=== PATIENT | female | born 1960 | race Caucasian/White ===

== ENCOUNTER 2019-04-27 09:23 | Outpatient (CLI) | payer BC, SELFPAY ==
--- NOTE | ~2019-04-27 | XR_ITS ---
EXAMINATION: XR abdomen/kub 1V INDICATION: Calculus of the left kidney TECHNIQUE: Supine views of the abdomen were obtained on 2 radiographs. COMPARISON: 03/07/2019 FINDINGS: A punctate group of calcifications previously described projecting in the left kidney lower pole are not definitely seen, suggestive of interval treatment change. There are phleboliths of the pelvis. No stones or stone fragments are identified along the expected course of the left ureter. The re is a 2 mm stone projecting in the upper pole of the left kidney. The bowel gas pattern is normal. IMPRESSION: 1. Interval treatment or passage of a cluster of stones previously seen in the lower pole of left kid humble. Reviewed, dictated and finalized at location A. E INTERCEPT TECHNICIAN IMPRESSION: 1. Interval treatment or passage of a cluster of stones previously seen in the lower pole of left kidney.
== END 2019-04-27 09:24 | disposition home or self-care (01) ==
PROVIDERS: Visit Provider Urology
DX: N20.0 Calculus of kidney (principal)
CPT/HCPCS: 74018

== ENCOUNTER → 2019-09-09 10:16 | Outpatient (CLI) | payer BC, SELFPAY ==
--- NOTE | ~2019-09-09 | DEXA_ITS ---
Bone Density Report Name: Eleanor Muller Age: 59 Sex: Female Ethnicity: White Date of : 1960 Indication: postmenopausal; screening for osteoporosis; height loss; Referring Provider: Nely, Trixie Study: Bone densitometry was performed. Exam Date: September 09, 2019 Accession number: [id number] Bone Density: Region BMD T-score Z-score Classification AP Spine (L1-L4) 0.985 -0.6 0.9 Normal Femoral Neck (Left) 0.783 -0.6 0.7 Normal Total Hip (Left) 0.974 0.3 1.3 Normal Femoral Neck (Right) 0.795 -0.5 0.8 Normal Total Hip (Right) 0.932 -0.1 0.9 Normal Total Hip Mean 0.953 0.1 1.1 Normal World Health Organization criteria for BMD impression classify patients as: Normal (T-score at or above -1.0), Osteopenia (T-score between -1.0 and -2.5), or Osteoporosis (T-score at or below -2.5). 10-year Fracture Risk: FRAX not reported because: All T-scores for Spine Total, Hip Total, Femoral Neck at or above -1.0 Previous Exams: Region Exam Age BMD T-score BMD Change BMD Change Date g/cm2 vs Baseline vs Previous AP Spine(L1-L4) 09/09/2019 59 0.985 -0.6 -0.074* -0.050* 06/24/2016 55 1.035 -0.1 -0.024* -0.024* 03/21/2013 52 1.059 0.1 Total Hip(Left) 09/09/2019 59 0.974 0.3 -0.012 0.026 06/24/2016 55 0.948 0.1 -0.038* -0.038* 03/21/2013 52 0.986 0.4 Total Hip(Right) 09/09/2019 59 0.932 -0.1 -0.050* -0.013 06/24/2016 55 0.945 0.0 -0.038* -0.038* 03/21/2013 52 0.983 0.3 *Denotes significance at 95% confidence level, LSC for AP Spine = 0.022 g/cm2, LSC for Total Hip = 0.027 g/cm2 Clinical Information Provided by Patient: Has used the following medications: Vitamin D Patient maximum height was 62 Menopause Age: 48 Drinks caffeinated beverages Onset of menses at age 10 Number of children 3 Impression: The patient has normal bone mass. The BMD for the AP Spine(L1-L4) decreased, changing by -0.050 since the last DXA exam. Discussion: BONE DENSITY IS ABOVE THE MINIMUM DESIRABLE LEVEL AT ALL SKELETAL SITES TESTED. This patient?s bone mineral density is above the minimum desirable level (T-score -1.0 or better) at all sites measured. The patient should follow a healthful lifestyle (good nutrition with adequate calcium and vitamin D, and appropriate weight-bearing exercise). Follow-Up: Consider repeating
--- NOTE | ~2019-09-09 | MM_ITS ---
EXAMINATION: MM screening [facility] BI w pepe HISTORY: Screening mammogram TECHNIQUE: Craniocaudal and mediolateral oblique 3-D tomosynthesis images were obtained and synthetic 2-D images were generated. CAD analysis was submitted and interpreted. COMPARISON: 08/19/2018, 07/20/2017, 06/24/2016 BREAST PARENCHYMAL COMPOSITION: There are scattered areas of fibroglandular density. FINDINGS: There is no evidence of suspicious mass, calcification, or architectural distortion to sugg est malignancy in either breast. There has been no suspicious interval change. IMPRESSION: 1. No mammographic evidence of malignancy. 2. Recommend routine screening mammography in one year. BI-RADS Category 1: Negative Reviewed, dictated and finalized at location A.
== END ==
PROVIDERS: Visit Provider Nurse Practitioner
DX: Z12.31 Encounter for screening mammogram for malignant neoplasm of breast (principal); Z78.0 Asymptomatic menopausal state
CPT/HCPCS: 77063; 77067; 77080

== ENCOUNTER 2019-09-26 13:54 | Outpatient (CLI) | payer BC, SELFPAY ==
--- NOTE | ~2019-09-26 | XR_ITS ---
EXAMINATION: XR lumbar spine 2-3V DATE: 09/26/2019 14:17 INDICATION: Low back pain TECHNIQUE: Anteroposterior and lateral views of the lumbar spine, and cone-down lateral view of the l umbosacral junction were obtained. COMPARISON: 07/07/2015 FINDINGS: There are 3 mm of anterolisthesis of L4 on L5 and L5 on S1. The vertebral body heights are maintained. There is mild chronic loss of intervertebral disc space height at L5-S1. No fracture is i dentified. There is mild facet osteoarthritis of the lower lumbar spine. IMPRESSION: 1. Mild lumbar spondylosis without acute findings or significant interval change. Reviewed, dictated and finalized at location B. IMPRESSION: 1. Mild lumbar spondylosis without acute findings or significant interval lexa iniguez
--- NOTE | ~2019-09-26 | XR_ITS ---
EXAMINATION: XR hip LT min 2V DATE: 09/26/2019 14:17 INDICATION: Left hip pain. TECHNIQUE: 3 views of left hip were obtained. COMPARISON: None. FINDINGS: Bone alignment is normal. No fracture. There is mild left hip osteoarthritis. IMPRESSION: 1. Mild left hip osteoarthritis. Reviewed, dictated and finalized at location A.
== END 2019-09-26 13:55 | disposition home or self-care (01) ==
PROVIDERS: PCP Family Medicine; Visit Provider Family Medicine
DX: M25.552 Pain in left hip (principal); M54.5 Low back pain
CPT/HCPCS: 72100; 73502

== ENCOUNTER 2019-10-13 11:51 | Outpatient (CLI) | payer BC, SELFPAY | END 2019-10-13 11:52 | disposition home or self-care (01) | PROVIDERS: PCP Family Medicine; Visit Provider Family Medicine | DX: J02.9 Acute pharyngitis, unspecified (principal); R50.9 Fever, unspecified | CPT/HCPCS: 87070; 87077 ==

== ENCOUNTER 2019-11-25 00:22 | Outpatient (CLI) | payer BC, SELFPAY ==
[2019-11-25 18:02] LABS: SARS-CoV-2 RNA PCR Negative
== END 2019-11-25 00:23 | disposition home or self-care (01) ==
LOC: ANHCOVIDDT 00:23
PROVIDERS: PCP Family Medicine; Visit Provider Internal Medicine Gastroenterology
DX: Z01.812 Encounter for preprocedural laboratory examination (principal); Z20.828 Contact with and (suspected) exposure to other viral communicable diseases
CPT/HCPCS: 87635; C9803; U0003

== ENCOUNTER 2019-11-28 01:25 | Day surgery (SDC) | payer BC, SELFPAY ==
[2019-11-22 12:00] VITALS: BMI 25.0
[2019-11-28 08:01] VITALS: BP 136/84; PULSE 85; RESP 14; TEMP 37; O2SAT 99; BMI 26.4
[2019-11-28] MEDS: LACTATED RINGERS 1,000 ML 150 ML IV CONT (08:15)
--- NOTE | 2019-11-28 08:25 | WPDANESEPPF ---
Anes - Initial Pre Proc Eval Procedure: Operation Date: 11/28/19 09:00 Proposed Procedures p Screening Colonoscopy - Esvin Gallagher MD Date/Time: 11/28/19 08:25 Surgeon: Esvin Gallagher MD Pre Op Diagnosis: neoplasm screening Patient Data Age: 59 Gender: F Height: 5 ft Weight: 61.3 kg Last Vital Signs Temp 37.0 C 11/28/19 08:01 Pulse 85 11/28/19 08:01 Resp 14 11/28/19 08:01 BP 136/84 11/28/19 08:01 Pulse Ox 99 11/28/19 08:01 Allergies Allergy/AdvReac Type Severity Reaction Status Date / Time tetanus immune globulin AdvReac Mild RASH Verified 11/28/19 08:00 CHILD Home Medications Medication Instructions Recorded Confirmed Type cyclobenzaprine 10 mg PO BID PRN 11/22/19 11/28/19 History Patient hx anesthesia problems: none Family hx anesthesia problems: none PMFSH Past Medical History Medical History Arthritis Renal stones Surgical History Surgical History Hx of cystoscopy S/P tonsillectomy Social History Social History Smoking status: Never smoker Alcohol intake: never Substance use: never Substance use type: does not use Living arrangements: with family Spiritual care concerns: No Anes - Eval Final PreProcedure Day of Procedure 11/28/19 08:25 Patient weight: overweight Heart: regular rate and rhythm Lungs: clear to auscultation Airway: Mallampati scale class II Neurological: alert and oriented Last oral intake: >/= 8 hours ASA classification: II Emergent: no Anesthetic plan: proceed Anesthesia type and monitoring: general GIVS and standard monitoring Informed Consent: The patient's anesthetic plan and its attendant risks and benefits were discussed with the patient/family/POA. Questions were solicited and answers provided to the satisfaction of the patient/family/POA.
--- NOTE | 2019-11-28 08:43 | P.HP_ITS ---
History of Present Illness History of Present Illness Consent: Risks, benefits, and alternatives have been discussed and questions answered. Patient agrees to proceed with procedure. Chief complaint: neoplasm screening Narrative: Eleanor Muller is a 59 year old W female Referred for screening colonoscopy. Patient's last colonoscopy was 10 years ago. Patient is asymptomatic and there is no family history of colon cancer. PMFSH Past Medical History Medical History Arthritis Renal stones Surgical History Surgical History Hx of cystoscopy S/P tonsillectomy Social History Social History Smoking status: Never smoker Alcohol intake: never Substance use: never Substance use type: does not use Living arrangements: with family Spiritual care concerns: No Meds Home Medications and Allergies Home Medications Medication Instructions Recorded Confirmed Type cyclobenzaprine 10 mg PO BID PRN 11/22/19 11/28/19 History Allergies Allergy/AdvReac Type Severity Reaction Status Date / Time tetanus immune globulin AdvReac Mild RASH Verified 11/28/19 08:00 CHILD Vital Signs Vital Signs - 24 hr 11/28/19 08:01 Temperature 37.0 C Pulse Rate 85 Respiratory Rate 14 Blood Pressure 136/84 Pulse Oximetry 99 Exam Const: Orientation/consciousness: patient oriented x3 Resp: Auscultation: clear to auscultation bilaterally Cardio: Rate: regular rate Rhythm: regular rhythm Heart sounds: no mu rmurs GI: GI Palp: Yes Soft to palpation, No Tenderness to palpation present (GI), Yes No hepatosplenomegaly present and No Palpable mass present Auscultation: normal bowel sounds Neuro: General: patient oriented x3 and no focal motor deficits Extrem: General: no pedal edema Assessment and Plan Additional Plan Screening colonoscopy in average risk patient
[2019-11-28 09:37] VITALS: BP 119/84; PULSE 88; RESP 20; O2SAT 100
[2019-11-28 09:47] VITALS: BP 106/77; PULSE 81; RESP 18; O2SAT 100
[2019-11-28 09:57] VITALS: BP 115/69; PULSE 67; RESP 18; O2SAT 100
== END 2019-11-28 10:01 | disposition home or self-care (01) ==
PROVIDERS: PCP Family Medicine; Referring Provider Obstetrics & Gynecology Gynecology; Visit Provider Internal Medicine Gastroenterology
PROC: 0DJD8ZZ Inspection of Lower Intestinal Tract, Via Natural or Artificial Opening Endoscopic (ICD-10-PCS; CPT 45378; principal; 2019-11-28 09:00)
DX: Z12.11 Encounter for screening for malignant neoplasm of colon (principal); K64.8 Other hemorrhoids
CPT/HCPCS: 45378; J2704; J7120

== ENCOUNTER → 2020-09-19 17:07 | Outpatient (CLI) | payer BC, SELFPAY ==
--- NOTE | ~2020-09-19 | MM_ITS ---
EXAMINATION: MM screening [facility] BI w pepe HISTORY: Screening TECHNIQUE: Craniocaudal and mediolateral oblique 3-D tomosynthesis images were obtained and synthetic 2-D images were generated. CAD analysis was submitted and interpreted. COMPARISON: Comparison to multiple prior studies sequentially, with oldest reviewed study dated 06/21. BREAST PARENCHYMAL COMPOSITION: There are scattered areas of fibroglandular density. FINDINGS: There is no evidence of suspicious mass, calcification, or architectural distortion to sugg est malignancy in either breast. There has been no suspicious interval change. IMPRESSION: 1. No mammographic evidence of malignancy. 2. Recommend routine screening mammography in one year. BI-RADS Category 1: Negative Reviewed, dictated and finalized at location A.
== END ==
PROVIDERS: Visit Provider Nurse Practitioner
DX: Z12.31 Encounter for screening mammogram for malignant neoplasm of breast (principal)
CPT/HCPCS: 77063; 77067

== ENCOUNTER 2021-02-26 11:54 | Outpatient (CLI) | payer BC, SELFPAY ==
--- NOTE | ~2021-02-26 | XR_ITS ---
EXAMINATION: XR hip RT min 2V DATE: 02/26/2021 12:47 INDICATION: Right hip pain. TECHNIQUE: 3 views of right hip were obtained. COMPARISON: None. FINDINGS: Bone alignment is normal. No fracture. There is mild right hip osteoarthritis. IMPRESSION: 1. Mild right hip osteoarthritis. Reviewed, dictated and finalized at location B. EROOM CLERK
--- NOTE | ~2021-02-26 | XR_ITS ---
EXAMINATION: XR femur RT min 2V DATE: 02/26/2021 12:46 INDICATION: Right hip pain. TECHNIQUE: 2 views of right femur on 4 radiographs were obtained. COMPARISON: None. FINDINGS: Bone alignment is normal. No fracture. There is mild right hip osteoarthritis. There is mil d tricompartmental osteoarthritis of the knee. No knee joint effusion. IMPRESSION: 1. Mild polyarticular osteoarthritis. Reviewed, dictated and finalized at location B. RIAL DAMAGE ADJUSTER
== END 2021-02-26 11:55 | disposition home or self-care (01) ==
LOC: CHSLAB 11:57 → CHSIMG 11:57
PROVIDERS: PCP Family Medicine; Visit Provider Family Medicine
DX: M25.551 Pain in right hip (principal)
CPT/HCPCS: 73502; 73552

== ENCOUNTER 2021-03-19 09:54 | Outpatient (CLI) | payer BC, SELFPAY ==
--- NOTE | ~2021-03-19 | XR_ITS ---
EXAMINATION: XR lumbar spine 2-3V EXAM DATE: 03/19/2021 10:21 INDICATION: Intervertebral disc disorders with radiculopathy lumbosacral . TECHNIQUE: Lumber spine frontal, lateral, lateral L5-S1 projections for interpretation. Comparison is made to prior examination from 09/26/2019. FINDINGS: There is 5 mm anterolisthesis L4 on L5 with mild to moderate disc disease at this level, mi ld disc disease L5-S1. Mild to moderate diffuse lumbar facet arthropathy. No spondylolysis suspected. There are no acute fractures identified. Paraspinal soft tissue is unremarkable. Calcifications in t he pelvis are believed to be phleboliths. IMPRESSION: 1. Grade 1 anterolisthesis L4 on L5. 2. Mild to moderate facet arthropathy and lower lumbar disc disease. Reviewed, dictated and finalized at location B. SURIZER
== END 2021-03-19 09:55 | disposition home or self-care (01) ==
LOC: CHSIMG 09:57
PROVIDERS: PCP Family Medicine; Visit Provider Family Medicine
DX: M51.17 Intervertebral disc disorders with radiculopathy, lumbosacral region (principal)
CPT/HCPCS: 72100

== ENCOUNTER → 2021-03-26 07:42 | Outpatient (CLI) | payer BC, SELFPAY ==
--- NOTE | ~2021-03-26 | MR_ITS ---
EXAMINATION: MR lumbar spine wo [facility] EXAM DATE: 03/26/2021 08:22 INDICATION: Intervertebral disc disorders with radiculopathy. Right-sided low back pain, right leg pa in. TECHNIQUE: Multi-sequential, multiplanar MR images of the lumbar spine were obtained without contrast . Sagittal T1, T2, T2 fat saturation images. Axial T2 weighted images. Correlation is made to x-ray from 03/19/2021. FINDINGS: There is 5 mm anterolisthesis L4 on L5 with mild to moderate loss of this disc height. Ther e is 3 mm anterolisthesis L5 on S1 with mild to moderate loss of this disc height. Mild disc disease L3-4. The conus medullaris terminates at the T12-L1 level and has normal signal intensity and morphol ogy. Tarlov cysts. There are no suspicious marrow signal abnormalities. Paraspinal soft tissue is unr emarkable. Level by level evaluation: T12-L1: Disc does not extend beyond the endplate margin. Facet arthropathy: Mild. Neural foraminal stenosis: No stenosis. Central canal stenosis: No stenosis. L1-L2: Disc does not extend beyond the endplate margin. Facet arthropathy: Mild. Neural foraminal stenosis: No stenosis. Central canal stenosis: No stenosis. L2-L3: Disc does not extend beyond the endplate margin. Facet arthropathy: Mild. Neural foraminal stenosis: No stenosis. Central canal stenosis: No stenosis. L3-L4: There is a mild diffuse disc bulge. Facet arthropathy: Mild to moderate. Ligamentum flavum enlargement. Neural foraminal stenosis: Mild bilateral. Central canal stenosis: Mild. L4-L5: There is a moderate diffuse disc bulge, superimposed small right central extrusion, inferior m igration causing severe lateral recess narrowing. Facet arthropathy: Severe . Ligamentum flavum enlargement. Neural foraminal stenosis: Mild to moderate bilateral. Central canal stenosis: Moderate to severe overall. Severe right lateral recess narrowing. L5-S1: There is a moderate diffuse disc bulge. Facet arthropathy: Moderate. Neural foraminal stenosis: Mild bilateral. Central canal stenosis: Mild to moderate. IMPRESSION: 1. L4-5 and L5-S1 grade 1 anterolistheses. No spondylolysis suspected. 2. L4-5 severe right lateral recess stenosis, moderate to severe central canal stenosis overall. Reviewed, dictated and finalized at location A. ESSOR OF MARKETING
== END ==
PROVIDERS: PCP Family Medicine; Visit Provider Family Medicine
DX: M51.17 Intervertebral disc disorders with radiculopathy, lumbosacral region (principal)
CPT/HCPCS: 72148

== ENCOUNTER 2021-07-28 06:58 | Emergency (ER) | payer BC, SELFPAY ==
[2021-07-28 07:03] VITALS: BP 128/107; PULSE 88; RESP 17; TEMP 36.3; O2SAT 96
--- NOTE | 2021-07-28 07:21 | ED.BACK ---
HPI - Back Pain/Injury General Chief Complaint: Back Pain/Injury Stated Complaint: lower back pain radiates to leg Time Seen by Provider: 07/28/21 07:11 History of Present Illness HPI Narrative: 60-year-old female with history of spinal stenosis presents here with 3 to 4 days of increasing pain that radiates from her right lower back down her right leg, similar to a prior episode she had back in March, endorses occasional tingling in the right foot but otherwise no weakness, chest pain, and worse when she bends, sits, she had taken a muscle relaxant last night which did not help. No fevers or chills, no recent trauma, and no urinary/fecal retention/incontinence. Related Data Home Medications Medication Instructions Recorded Confirmed cyclobenzaprine 10 mg tablet 10 mg PO BID PRN Back Pain 11/22/19 11/28/19 Allergies Allergy/AdvReac Type Severity Reaction Status Date / Time tetanus immune globulin AdvReac Mild RASH Verified 11/28/19 08:00 CHILD Review of Systems Review of Systems: CONST: No fever. HEENT: No sore throat C/V: No chest pain RESP: No cough GI: No abdominal pain : No dysuria. M/S: Pain radiating down right leg SKIN: No rash. NEURO: Some tingling right foot PSYCH: [No depression] [facility] Past Medical History Medical History Arthritis Renal stones Surgical History Surgical History Hx of cystoscopy S/P tonsillectomy Social History Social History Smoking status: Never smoker Alcohol intake: never Substance use: never Substance use type: does not use Spiritual care concerns: No Exam Narrative: EXAMINATION OF ORGAN SYSTEMS/BODY AREAS: Constitutional: Vital signs per nursing GENERAL: Resting comfortably when lying down in bed flat, but in severe pain when sitting up HEAD: Normal with no signs of head trauma. EYES: EOMI, conjunctiva normal ENT: Hearing grossly intact LUNGS: Nonlabored breathing. HEART: [Regular rate and rhythm] ABD: Nondistended EXT: Normal range of motion, no lower extremity swelling or tenderness, neg Nanda's sign SKIN: [No rashes or lesions.] NEURO: [Alert and oriented x 3.] Able to bear weight on both extremities PSYCH: Normal affect Course Vital Signs Vital signs: Vital Signs Temperature 97.3 F L 07/28/21 07:03 Pulse Rate 88 07/28/21 07:03 Respiratory Rate 17 07/28/21 07:03 Blood Pressure 128/107 H 07/28/21 07:03 Pulse Oximetry 96 07/28/21 07:03 Oxygen Delivery Room Air 07/28/21 07:03 Temperature 97.3 F L 07/28/21 07:03 Pulse Rate 88 07/28/21 07:03 Respiratory Rate 17 07/28/21 07:03 Blood Pressure 128/107 H 07/28/21 07:03 Pulse Oximetry 96 07/28/21 07:03 Oxygen Delivery Room Air 07/28/21 07:03 MDM - Back Pain/Injury MDM Narrative Medical decision making narrative: ED COURSE AND MEDICAL DECISION MAKING: ? 60-year-old female with acute on chronic low back pain. Normal motor and sensory exam. Patient able to ambulate though with pain. No evidence of acute cord compression, osteomyelitis/discitis or cauda equina without saddle anesthesia, urinary retention/incontinence, numbness/tingling in lower extremities, fever, history of IV drug use, cancer or immunosuppression. Doubt AAA or aortic dissection without severe pain/discomfort or any neurovascular deficits. [Ketorolac 15mg IM and Maddock 5mg PO] given for symptomatic relief. Prednisone given. [I discussed management of acute back pain in detail, explaining the need to remain active and the goals of pain control.] Patient is given return precautions and instructed to come back at any point in time for worsening pain, fevers, weakness, difficulty walking, urinary or fecal incontinence. Patient will follow up with her pain specialist and possibly a neurosurgeon; she expressed understanding of instructions. D
[2021-07-28] MEDS: predniSONE 20 MG TABLET 40 MG PO (07:28)
[2021-07-28] MEDS: HYDROcodone/acetaminophen (*CRX) 5-325 MG TABLET 1 TAB PO (07:29)
[2021-07-28] MEDS: KETOROLAC 30 MG/ML VIAL (*BKC) 15 MG IM (07:29)
[2021-07-28 07:49] VITALS: BP 142/88; PULSE 77; RESP 18; O2SAT 98
== END 2021-07-28 08:10 | disposition home or self-care (01) ==
PROVIDERS: Emergency Provider Emergency Medicine; PCP Family Medicine
DX: M54.16 Radiculopathy, lumbar region (principal)
CPT/HCPCS: 96372; 99283; A9270; J1885; J7512

== ENCOUNTER → 2021-12-12 10:16 | Outpatient (CLI) | payer BC, SELFPAY ==
--- NOTE | ~2021-12-12 | MM_ITS ---
EXAMINATION: MM screening [facility] BI w pepe HISTORY: Screening TECHNIQUE: Craniocaudal and mediolateral oblique 3-D tomosynthesis images were obtained and synthetic 2-D images were generated. CAD analysis was submitted and interpreted. COMPARISON: Comparison to multiple prior studies sequentially, with oldest reviewed study dated 06/21. BREAST PARENCHYMAL COMPOSITION: Breast composed of scattered areas of fibroglandular density FINDINGS: There is no evidence of suspicious mass, calcification, or architectural distortion to sugg est malignancy in either breast. There has been no suspicious interval change. IMPRESSION: 1. No mammographic evidence of malignancy. 2. Recommend routine screening mammography in one year. BI-RADS Category 1: Negative Reviewed, dictated and finalized at location A.
== END ==
PROVIDERS: PCP Family Medicine; Visit Provider Nurse Practitioner
DX: Z12.31 Encounter for screening mammogram for malignant neoplasm of breast (principal)
CPT/HCPCS: 77063; 77067

== ENCOUNTER 2022-07-16 11:52 | Outpatient (CLI) | payer BC, SELFPAY ==
--- NOTE | ~2022-07-16 | XR_ITS ---
Lumbosacral Spine: AP and lateral views Clinical History: Pain COMPARISON: 03/19/2021 Findings: The normal lordotic curve is maintained. 1 cm anterolisthesis of L4 over L5 is present, pos sibly minimally worsened from prior exam. There is facet arthropathy from L3 through S1. There is mod erate degenerative narrowing at L4-L5 and L5-S1. The sacroiliac joints are normally outlined. Impression: 1 cm anterolisthesis of L4 over L5, likely mildly progressed from prior exam. Mild degenerative spondylosis of the lower lumbar spine otherwise, as detailed above. Reviewed, dictated and finalized at location M. Impression: 1 cm anterolisthesis of L4 over L5, likely mildly progressed from prior exam. Mild degenerative spondylosis of the lower lumbar spine otherwise, as detailed above.
--- NOTE | ~2022-07-16 | XR_ITS ---
AP and lateral views of the bilateral hips Clinical history: Pain Findings: No acute fracture or dislocation is seen. Osseous alignment is anatomic. Bilateral hip and SI joint spaces are preserved. Soft tissues are unremarkable. Impression: No significant abnormality is seen. Reviewed, dictated and finalized at location . Impression: No significant abnormality is seen.
== END 2022-07-16 11:53 | disposition home or self-care (01) ==
LOC: CHSIMG 11:55
PROVIDERS: PCP Family Medicine; Visit Provider Family Medicine
DX: M25.559 Pain in unspecified hip (principal); M48.07 Spinal stenosis, lumbosacral region; M43.16 Spondylolisthesis, lumbar region
CPT/HCPCS: 72100; 73521

== ENCOUNTER → 2022-07-23 08:14 | Outpatient (CLI) | payer BC, SELFPAY ==
--- NOTE | ~2022-07-23 | MR_ITS ---
EXAMINATION: MR lumbar spine wo con DATE: 07/23/2022 09:15 INDICATION: Spinal stenosis TECHNIQUE: Magnetic resonance imaging (MRI) of the lumbar spine was performed without intravenous con trast. Sequences included sagittal T2-weighted FSE, sagittal T2-weighted FS FSE, sagittal T1-weighted FSE, and axial T2-weighted FSE. COMPARISON: Lumbar spine MR dated 03/26/2021 FINDINGS: Unchanged 5 mm anterolisthesis L4 on L5 and 3 mm anterolisthesis L5 on S1. Vertebral body heights are normal. Normal marrow signal. Mild disc height loss at L3-L4 and moderate disc height loss at L4-L5 and L5-S1. The conus medullaris terminates at L1. There is normal signal in the caudal spinal cord. There are a few Tarlov cysts in the sacrum, most prominent on the left at the S2 neural foramen. Para vertebral soft tissues are unremarkable. The following disc levels are specifically discussed: T12-L1: Disc is mildly bulging. There is moderate bilateral facet joint osteoarthritis. There is no n eural foraminal stenosis. There is minimal central canal stenosis. L1-L2: Disc is mildly bulging. There is mild bilateral facet joint osteoarthritis. There is no neural foraminal stenosis. There is no central canal stenosis. L2-L3: Disc is minimally bulging. There is mild bilateral facet joint osteoarthritis. There is mild b ilateral neural foraminal stenosis. There is no central canal stenosis. L3-L4: Disc is bulging. There is hypertrophy of the ligamentum flavum. There is mild to moderate bila teral facet joint osteoarthritis. There is mild to moderate bilateral neural foraminal stenosis. Ther e is mild central canal stenosis with narrowing of the left and right lateral recesses. L4-L5: Disc is bulging with annular fissure and increase in leftward extension of a now more centrall y positioned disc extrusion with disc material extending a 2-3 mm cephalad and caudal to the level of the endplates. There is hypertrophy of the ligamentum flavum. There is severe bilateral facet joint osteoarthritis. There is mild to moderate bilateral neural foraminal stenosis. There is severe centra l canal stenosis. L5-S1: Disc is bulging with annular fissure. There is moderate left and severe right facet joint oste oarthritis. There is mild bilateral neural foraminal stenosis. There is mild central canal stenosis. IMPRESSION: 1. Unchanged 5 mm anterolisthesis L4 on L5 and 3 mm anterolisthesis L5 on S1. 2. Slight progression in mild upper and moderate lower lumbar spondylosis. Reviewed, dictated and finalized at location A.
== END ==
PROVIDERS: PCP Family Medicine; Visit Provider Family Medicine
DX: M48.07 Spinal stenosis, lumbosacral region (principal); M47.896 Other spondylosis, lumbar region
CPT/HCPCS: 72148

== ENCOUNTER → 2022-08-25 10:18 | Outpatient (CLI) | payer BC, SELFPAY ==
--- NOTE | ~2022-08-25 | US_ITS ---
Pelvic ultrasound. Clinical History: Postmenopausal bleeding Technique: Realtime transabdominal scanning of the pelvis was performed. Color flow Doppler and Doppl er spectral analysis were performed. Findings: The uterus is anteverted. The endometrial stripe has a thickness of 4 mm. No focal mass is identified. Neither ovary seen. No adnexal mass seen. There is no evidence of free fluid in the cul de sac. Impression: Unremarkable appearance of the uterus and endometrial stripe. Neither ovary seen. No adnexal mass seen. Reviewed, dictated and finalized at location M. Impression: Unremarkable appearance of the uterus and endometrial stripe. Neither ovary seen. No adnexal mass seen.
== END ==
PROVIDERS: PCP Nurse Practitioner; Visit Provider Nurse Practitioner
DX: N95.0 Postmenopausal bleeding (principal)
CPT/HCPCS: 76856

== ENCOUNTER 2022-10-13 02:57 | Day surgery (SDC) | payer BC, SELFPAY ==
[2022-10-02 15:01] VITALS: BMI 23.8
--- NOTE | 2022-10-02 15:22 | SUR.PREOP ---
Report to the Outpatient Waiting Room, entrance under the green pavilion located off [facility], at time 0600 on date 10/13/2022. Planned Procedure Time: 0730. Time changes happen often and if your time is changed the preop area will call you the afternoon before. - You and your visitor will be asked to self-screen and do not enter if you have any COVID symptoms. - A mask is optional within the hospital at this time. Patients may have clear liquids (water, carbonated beverages, clear teas, apple juice) until 3 hours prior to surgery with a maximum of 20 ounces- 0430. - No food from midnight until time of surgery - Infants may have breast milk until 4 hours before surgery, formula 6 hours prior to surgery. - Children will be allowed to drink immediately following surgery. If applicable, please bring a bottle or sippy cup to assist with drinking. Juice, water, soda, and popsicles are readily available. For infants on formula, please bring formula the day of surgery. Pacifiers are allowed. Take the following medications with a SIP of water the morning of surgery: Tylenol or Cyclobenzaprine as needed DO NOT STOP ANY OF YOUR OTHER PRESCRIPTION MEDICATIONS PRIOR TO SURGERY ?EXCEPT THE FOLLOWING Medications to discontinue per physician: Naproxen- per patient stopping now, Vitamin D- 3 days Date to take last dose 10/09/2022 Please no make-up, nail israeli, hairspray, perfume, deodorant, or body powder the day of surgery. No jewelry (including any body piercings) or valuables the day of surgery, leave them at home. Please take a shower or bath the night before, or the morning of, surgery with an antibacterial soap. Wear comfortable, loose fitting clothing. Children are encouraged to wear pajamas. - Jewelry must be removed prior to entering the operating room. Rings and piercings that are not removed may be cut off. - The hospital will not accept responsibility for valuables. - Please leave all valuables, including medications, at home the day of surgery. If you are going home after surgery, a licensed regional driver must drive you home. - NO public transportation without another adult if you receive anesthesia. - We recommend that an adult stay with you for 24 hours following discharge. - We also recommend that you do not drive, make important decision, drink alcoholic beverages, or take any drugs that were not prescribed by your health care provider for at least 24 hours after your discharge time. For Pediatric surgeries, we recommend two adults accompany the child home. Follow any additional instructions given to you from your surgeon. If you or anyone in your household have experienced Covid symptoms in the past week, please notify your surgeon or the nurse liaison at the phone number below for possible testing. Telephone instructions given to patient and asked if any additional questions and then verbalized understanding. Patient advised to call surgeon office or pre surgery nurse liaison [phone] if any additional questions.
[2022-10-13 06:23] VITALS: BP 141/84; PULSE 67; RESP 18; TEMP 36.3; O2SAT 100
[2022-10-13] MEDS: LACTATED RINGERS 1,000 ML 30 ML IV CONT (06:53)
[2022-10-13] MEDS: ACETAMINOPHEN 500 MG TABLET 1000 MG PO (06:54)
--- NOTE | 2022-10-13 07:07 | P.PNAN_ITS ---
Anes - Initial Pre Proc Eval Procedure: Operation Date: 10/13/22 07:30 Proposed Procedures p Hysteroscopy Dilation and Curettage - Sierra Calderón MD Date/Time: 10/13/22 07:07 Surgeon: Sierra Calderón MD Pre Op Diagnosis: post menopausal bleeding Patient Data Age: 62 Gender: F Height: 1.55 m Weight: 57.2 kg Allergies Allergy/AdvReac Type Severity Reaction Status Date / Time tetanus immune globulin AdvReac Mild RASH Verified 10/13/22 06:48 CHILD Home Medications Medication Instructions Recorded Confirmed Type cyclobenzaprine 10 mg tablet 10 mg PO BID PRN Back Pain 11/22/19 10/13/22 History acetaminophen 500 mg tablet 1,000 mg PO Q6H PRN pain #30 tabs 07/28/21 10/13/22 Rx (Tylenol Extra Strength) naproxen sodium 220 mg capsule 220 mg PO BID pain #20 caps 07/28/21 10/13/22 Rx cholecalciferol (vitamin D3) 125 125 mcg PO DAILY 10/02/22 10/13/22 History mcg (5,000 unit) tablet (Vitamin D3) Patient hx anesthesia problems: none Family hx anesthesia problems: none Results Review: All pre-operative results and documents have been reviewed as part of the pre- operative evaluation. [facility] Past Medical History Medical History Arthritis Renal stones Surgical History Surgical History Hx of cystoscopy S/P tonsillectomy Social History Social History Smoking status: Never smoker Second hand tobacco smoke exposure: Yes Alcohol intake: former Substance use: never Substance use type: does not use Living arrangements: with family Spiritual care concerns: No Anes - Eval Final PreProcedure Day of Procedure 10/13/22 07:07 Patient weight: normal Heart: regular rate and rhythm Lungs: clear to auscultation Airway: Mallampati scale class II Neurological: alert and oriented Last oral intake: >/= 8 hours ASA classification: III Emergent: no Anesthetic plan: proceed Anesthesia type and monitoring: general GIVS and standard monitoring Results Review: All pre-operative results and documents have been reviewed as part of the pre-operative evaluation. Informed Consent: The patient's anesthetic plan and its attendant risks and benefits were discussed with the patient/family/POA. Questions were solicited and answers provided to the satisfaction of the patient/family/POA.
--- NOTE | 2022-10-13 07:17 | WPDHPUPDATE1 ---
History and Physical Update Update Date/Time: 10/13/22 07:17 History and Physical has been reviewed, including an updated exam of the patient. There are NO changes in the patient's condition. Risks, benefits, and alternatives have been discussed and questions answered. Patient agrees to proceed with procedure.
--- NOTE | 2022-10-13 07:17 | PM.HPGS ---
History of Present Illness History of Present Illness Consent: Risks, benefits, and alternatives have been discussed and questions answered. Patient agrees to proceed with procedure. Chief complaint: post menopausal bleeding Narrative: Eleanor Muller is a 62 year old female with random episodes throughout the past year of spotting. The pelvic ultrasound was fairly unremarkable with a minimally thickened endometrium. Was recommended to proceed with D&C hysteroscopy due to there being several episodes throughout the year. Risks of infection, bleeding, perforation, and possible pathology are reviewed. Patient voices understanding and agrees to proceed. Review of Systems Review of Systems: not repeated day of surgery; patient states no changes in status [facility] Past Medical History Medical History (Updated 10/13/22 @ 07:21 by Sierra Calderón MD) Arthritis (normal spontaneous vaginal delivery) x3 Renal stones Surgical History Surgical History (Updated 10/13/22 @ 07:21 by Sierra Calderón MD) History of bilateral tubal ligation History of hysteroscopy 2009 with no abnormalities Hx of cystoscopy Hx of lithotripsy multiple S/P tonsillectomy Social History Social History Smoking status: Never smoker Second hand tobacco smoke exposure: Yes Alcohol intake: former Substance use: never Substance use type: does not use Living arrangements: with family Spiritual care concerns: No Meds Home Medications and Allergies Home Medications Medication Instructions Recorded Confirmed Type cyclobenzaprine 10 mg tablet 10 mg PO BID PRN Back Pain 11/22/19 10/13/22 History acetaminophen 500 mg tablet 1,000 mg PO Q6H PRN pain #30 tabs 07/28/21 10/13/22 Rx (Tylenol Extra Strength) naproxen sodium 220 mg capsule 220 mg PO BID pain #20 caps 07/28/21 10/13/22 Rx cholecalciferol (vitamin D3) 125 125 mcg PO DAILY 10/02/22 10/13/22 History mcg (5,000 unit) tablet (Vitamin D3) Allergies Allergy/AdvReac Type Severity Reaction Status Date / Time tetanus immune globulin AdvReac Mild RASH Verified 10/13/22 07:10 CHILD Vital Signs Vital Signs - 24 hr 10/13/22 06:23 Temperature 97.3 F L Pulse Rate 67 Respiratory Rate 18 Blood Pressure 141/84 H Pulse Oximetry 100 Oxygen Delivery Room Air Exam Const: General: healthy appearing and alert Orientation/consciousness: patient oriented x3 Resp: Effort & Inspection: normal respiratory effort GI: GI Palp: Yes Soft to palpation, No Tenderness to palpation present (GI) and No Palpable mass present : External Female Exam: normal external appearance Speculum Exam - Vagina: normal appearance of the vagina and normal vaginal discharge Speculum Exam - Cervix: normal appearance of the cervix Bimanual exam- vagina & uterus: uterine size normal and consistency normal Bimanual Exam- Adnexa, other: normal adnexae and No adnexal tenderness Neuro: General: patient oriented x3 Assessment and Plan Assessment and plan (1) Post-menopausal bleeding: Code(s): N95.0 - Postmenopausal bleeding Status: Acute Assessment and Plan: plan to proceed with D&C hysteroscopy
--- NOTE | 2022-10-13 07:51 | W.PM.PROC2 ---
Procedure Note - Detailed Date of Procedure 10/13/22 Pre-op Diagnosis post menopausal bleeding Post-op Diagnosis Same Procedure Performed D&C hysteroscopy Surgeon Sierra Calderón MD Anesthesia MAC Findings uterus sounds to 6.5cm and is very atrophic; some scarring in the midline fundus Description of Procedure The patient is taken to the operating room and placed under anesthesia dorsal lithotomy position. She was prepped and draped in the usual sterile fashion. Speculum was placed in the vagina and the cervix grasped on the anterior lip with a tenaculum. The uterus is sounded to 6.5cm. The diagnostic hysteroscope was attempted to be placed and cervix is too stenotic. The cervix is serially dilated to a 6 Hegar. The diagnostic hysteroscope was then placed without difficulty. The above-stated findings are noted. The hysteroscope was then removed. The OO sharp curette is used to curette the endometrium until a good uterine cry was noted in all areas. Minimal if any material was obtained consistent with the severely atrophic appearance. All instruments are then removed. Patient was awakened from anesthesia and taken to recovery in stable condition. Sponge, needle, and instrument counts are correct per the OR staff. Estimated Blood Loss 5 Drains No Packing No Pathology Yes ( Endometrial curettings) Complications No immediate complications Condition Stable Disposition PACU
[2022-10-13 07:53] VITALS: BP 122/75; PULSE 85; RESP 14; O2SAT 90
[2022-10-13 08:20] VITALS: BP 121/66; PULSE 63; RESP 20
[2022-10-13] MEDS: oxyCODONE HCL (*CRX) 5 MG TAB IR PO (08:32)
[2022-10-13 08:50] VITALS: BP 122/69; PULSE 68; RESP 20
[2022-10-13 09:15] VITALS: BP 106/77; PULSE 60; RESP 20
== END 2022-10-13 09:21 | disposition home or self-care (01) ==
PROVIDERS: PCP Family Medicine; Visit Provider Obstetrics & Gynecology Gynecology
PROC: 0U5B8ZZ Destruction of Endometrium, Via Natural or Artificial Opening Endoscopic (ICD-10-PCS; CPT 58563; principal; 2022-10-13 07:30)
DX: N95.0 Postmenopausal bleeding (principal); N85.8 Other specified noninflammatory disorders of uterus
CPT/HCPCS: 58558; 88305; A9270; J1100; J2250; J2405; J2704; J3010; J7120

== ENCOUNTER → 2022-12-15 11:24 | Outpatient (CLI) | payer BC, SELFPAY ==
--- NOTE | ~2022-12-15 | MM_ITS ---
EXAMINATION: MM screening [facility] BI w pepe HISTORY: Screening TECHNIQUE: Craniocaudal and mediolateral oblique 3-D tomosynthesis images were obtained and synthetic 2-D images were generated. CAD analysis was submitted and interpreted. COMPARISON: Comparison to multiple prior studies sequentially, with oldest reviewed study dated 06/24. BREAST PARENCHYMAL COMPOSITION: There are scattered areas of fibroglandular density. FINDINGS: There is no evidence of suspicious mass, calcification, or architectural distortion to sugg est malignancy in either breast. There has been no suspicious interval change. IMPRESSION: 1. No mammographic evidence of malignancy. 2. Recommend routine screening mammography in one year. BI-RADS Category 1: Negative Reviewed, dictated and finalized at location A.
== END ==
PROVIDERS: PCP Nurse Practitioner; Visit Provider Nurse Practitioner
DX: Z12.31 Encounter for screening mammogram for malignant neoplasm of breast (principal)
CPT/HCPCS: 77063; 77067

== ENCOUNTER 2023-02-20 23:53 | Inpatient (IN) | payer BC, SELFPAY ==
--- NOTE | ~2023-02-20 | MR_ITS ---
EXAMINATION: MR MRCP wo/w con/w 3D wo ind DATE: 02/21/2023 09:10 INDICATION: Choledocholithiasis. Pancreatitis. Abdominal pain. TECHNIQUE: Magnetic resonance imaging (MRI) of the abdomen was performed without and with 12 mL Multi Miguelito intravenous contrast. Sequences included coronal T2-weighted FS FSE, coronal T2-weighted FSE, a xial T1-weighted LAVA, coronal FS FIESTA, axial dual-echo T1-weighted SPGR, coronal lava-FLEX, sagitt al T2-weighted FSE, axial T2-weighted FSE, and axial DWI. Thick-slab T2-weighted FSE images were obta ined for magnetic resonance cholangiopancreatography (MRCP). Maximum intensity projection 3-D reconst ructions of the volumetric data were created by the technologist. Postcontrast sequences included cor onal LAVA-flex and time course of axial T1-weighted LAVA. COMPARISON: CT abdomen and pelvis 02/21/2023 FINDINGS: ABDOMEN MRI: There is diffuse hepatic steatosis. There is mild intrahepatic biliary duct dilatation. The gallbladder is distended. Gallbladder wall thickening is noted. The spleen is normal. 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 The adrenal glands are normal. There is cortical thinning of the kidneys. There are cysts in the kidneys measuring up to 2.3 cm on the left. There are no dilated loops of fritz l. There are no pathologically enlarged lymph nodes. There is no free intraperitoneal fluid. There is a small sliding hiatal hernia. ABDOMEN MRCP: The common duct is dilated to 13 mm. IMPRESSION: 1. Intrahepatic and extrahepatic biliary duct dilatation and gallbladder distention with gallbladder wall thickening suggesting inflammation. No visible cholelithiasis or choledocholithiasis by MRI. Not e that the 4 mm calcified stone at the ampulla seen by CT on 02/21/2023 would likely not be well visu alized by MR due to its location. Reviewed, dictated and finalized at location E. /HARD OF HEARING SPECIALIST IMPRESSION: 1. Intrahepatic and extrahepatic biliary duct dilatation and gallbladder disten tion with gallbladder wall thickening suggesting inflammation. No visible luly lithiasis or choledocholithiasis by MRI. Note that the 4 mm calcified stone at the ampulla seen by CT on 02/21/2023 would likely not be well visualized by MR due to its location.
--- NOTE | ~2023-02-20 | CT_ITS ---
EXAMINATION: CTA chest PE abdomen pel DATE: 02/21/2023 01:32 INDICATION: Pleuritic chest pain and epigastric pain, radiating to back and right arm for one day. Vo miting. TECHNIQUE: Computed tomography angiography (CTA) of the chest, abdomen and pelvis was performed with 100 mL Omnipaque-350 intravenous contrast timed to evaluate the pulmonary arteries. Coronal maximum i ntensity projection 3D-reconstructions were created by the technologist. Automated exposure control a nd iterative reconstruction technique were employed. Exam dose: 518.45 mGy-cm total exam DLP. COMPARISON: 02/21/2023 2 view chest 03/31/2018 CT abdomen pelvis FINDINGS: There is diagnostic contrast enhancement of the pulmonary arteries and no evidence of pulmo nary embolism. No thoracic aortic aneurysm or dissection. Cardiomegaly. No pericardial or pleural effusion. No pulmonary infiltrate or consolidation or pulmonary mass lesion is detected. No hilar or mediastinal mass lesion or lymphadenopathy. There is a 3.5 mm distal common bile duct calculus with dilatation of the common bile duct up to 10 m m diameter and the pancreatic duct up to 5 mm diameter. There is mild intrahepatic bile ductal dilata tion. The gallbladder appears unremarkable. No pericholecystic fluid or fat stranding. No hepatic, splenic, pancreatic, adrenal space-occupying mass lesion. 5 mm right renal cyst. 6 and 6.5 mm left renal cortical cysts and larger parapelvic left renal cysts. Prominent approximately 10 x 10 mm staghorn calculus of the upper pole of the left kidney and several pinpoint nonobstructing left renal calculi. No ureteral calculus or hydroureteronephrosis. There is small amount of air in the nondependent anterior aspect of the urinary bladder. No bladder w all thickening or perivesical fat stranding is noted. The uterus and adnexal areas appear unremarkable. Normal caliber of the abdominal aorta. No intraperitoneal or retroperitoneal or pelvic mass lesion or adenopathy or ascites. Normal appendix. There is mild diverticulosis of the sigmoid colon; no CT evidence of diverticulitis. No bowel obstruction, bowel wall thickening, pneumatosis or intraperitoneal free air is detected. There is grade 1 anterolisthesis at L4-5 and L5-S1 due to degenerative change at the apophyseal joint s. Moderately severe degenerative disc disease at L5-S1. No suspicious osteolytic or osteoblastic lesions are noted. IMPRESSION: 3.5 mm distal common bile duct stone with dilatation of the common bile duct, intrahepat ic bile ducts and pancreatic duct Bilateral renal cysts Nonobstructive left nephrolithiasis Normal appendix Mild sigmoid colon diverticulosis Cardiomegaly No evidence of pulmonary embolism Reviewed, dictated and finalized at Location A. Reviewed, dictated and finalized at location A. OMINIUM PROPERTY MANAGER IMPRESSION: 3.5 mm distal common bile duct stone with dilatation of the common bile duct, intrahepatic bile ducts and pancreatic duct Bilateral renal cysts Nonobstructive left nephrolithiasis Normal appendix Mild sigmoid colon diverticulosis Cardiomegaly No evidence of pulmonary embolism
--- NOTE | ~2023-02-20 | XR_ITS ---
XR ERCP Indication: Pancreatitis. Choledocholithiasis. TECHNIQUE: Fluoroscopy used during ERCP procedure performed by [Joel Gordillo, ] on [facility] dated 02/21/2023. 295 seconds of fluoroscopy with 5 fluoroscopic images captured. FINDINGS: Correlate with procedure note. IMPRESSION: Fluoroscopy used during ERCP procedure. Please refer to procedural report. Reviewed, dictated and finalized at location A. STRIAL YARD BRAKE COUPLER
--- NOTE | ~2023-02-20 | XR_ITS ---
XR chest 2V DATE: 02/21/2023 00:43 INDICATION: Mid chest pain TECHNIQUE: PA and lateral views COMPARISON: 08/02/2017 two-view chest FINDINGS: Heart size is within normal range. Minimal aortic tortuosity. No hilar or mediastinal enlar gement. No pulmonary infiltrate or consolidation, pleural effusion or pulmonary vascular congestion or pneumo thorax is detected. IMPRESSION: No active cardiopulmonary disease Reviewed, dictated and finalized at location A. TIZER
[2023-02-20 23:59] VITALS: RESP 21; O2SAT 97
[2023-02-21] VITALS (33 sets, daily range): BP systolic 108–153; BP diastolic 43–93; PULSE 77–105; RESP 12–24; TEMP 36.4–37.1; O2SAT 92–98; BMI 26.3
--- NOTE | 2023-02-21 00:05 | ECG_ITS ---
Measurements Intervals [place] Rate: 100 P: 52 DC: 164 QRS: 31 QRSD: 92 T: 30 QT: 339 QTc: 438 Interpretive Statements SINUS TACHYCARDIA PROBABLE INFERIOR MYOCARDIAL INFARCTION , PROBABLY OLD [35 ms Q WAVE IN II/aVF] NO PREVIOUS ECG AVAILABLE FOR COMPARISON Electronically Signed On 02-21-2023 9:03:48 FORM SETTER HELPER by Nirmala Fulton M.D.
--- NOTE | 2023-02-21 00:12 | ED.CHESTPAIN ---
HPI - Chest Pain General Chief Complaint: Chest Pain <SHREYA Yee Last Filed: 02/21/23 03:27> Stated Complaint: chest pain, n/v <SHREYA Yee Last Filed: 02/21/23 03:27> Time Seen by Provider: 02/20/23 23:59 <SHREYA Yee Last Filed: 02/21/23 03:27> Source: patient <SHREYA Yee Last Filed: 02/21/23 03:27> Mode of arrival: ambulatory <SHREYA Yee Last Filed: 02/21/23 03:27> Limitations: no limitations <SHREYA Yee Last Filed: 02/21/23 03:27> History of Present Illness HPI narrative: This is a 62 year old female that presents to the ER for epigastric pain. Ongoing since yesterday. Worsening after eating dinner tonight. Associated with nausea, vomiting and back pain. Denies fever, cough, shortness of breath, dysuria or hematuria. <SHREYA Yee Last Filed: 02/21/23 03:27> Related Data Home Medications: Home Medications Medication Instructions Recorded Confirmed cyclobenzaprine 10 mg tablet 10 mg PO BID PRN Back Pain 11/22/19 10/13/22 cholecalciferol (vitamin D3) 125 125 mcg PO DAILY 10/02/22 10/13/22 mcg (5,000 unit) tablet (Vitamin D3) <SHREYA Yee Last Filed: 02/21/23 03:27> Allergies/Adverse Reactions: Allergies Allergy/AdvReac Type Severity Reaction Status Date / Time tetanus immune globulin AdvReac Mild RASH Verified 02/21/23 00:12 CHILD <SHREYA Yee Last Filed: 02/21/23 03:27> Review of Systems Review of Systems: CONSTITUTIONAL: Denies fever CARDIOVASCULAR: Reports chest pain. Denies palpitations, or edema. RESPIRATORY: Denies dyspnea. GASTROINTESTINAL: Reports abdominal pain, nausea, vomiting GENITOURINARY: Denies dysuria or hematuria. <SHREYA Yee Last Filed: 02/21/23 03:27> All systems reviewed & are unremarkable except as noted in HPI and below <Angela Painter PA-C - Last Filed: 02/21/23 03:27> PMFSH Past Medical History Medical History: Medical History (Updated 02/21/23 @ 03:18 by Angela Painter PA-C) Arthritis (normal spontaneous vaginal delivery) x3 Renal stones <Angela Painter PA-C - Last Filed: 02/21/23 03:27> Surgical History Surgical History: Surgical History (Updated 10/13/22 @ 07:21 by Sierra Calderón MD) History of bilateral tubal ligation History of hysteroscopy 2009 with no abnormalities Hx of cystoscopy Hx of lithotripsy multiple S/P tonsillectomy <Angela Painter PA-C - Last Filed: 02/21/23 03:27> Social History Social History: Social History Smoking status: Never smoker Second hand tobacco smoke exposure: Yes Alcohol intake: former Substance use: never Substance use type: does not use Living arrangements: with family Spiritual care concerns: No <Angela Painter PA-C - Last Filed: 02/21/23 03:27> Exam Narrative: GENERAL: Well-appearing, well-nourished, and in no acute distress. HEAD: Normocephalic, atraumatic. EYES: EOMI. NECK: No JVD CHEST: Clear to auscultation. No respiratory distress. No wheezes rales or rhonchi HEART: Regular rate and rhythm. No murmur heard. Normal peripheral pulses. ABDOMEN: Soft, nondistended, normal active bowel sounds. Tender to palpation in the epigastrium, without guarding. EXTREMITIES: Normal range of motion. No edema. SKIN: Warm, dry, no rash. NEURO: No focal deficits. Alert and oriented x3. PSYCH: Normal mood and affect <Angela Painter PA-C - Last Filed: 02/21/23 03:27> Course Course Emergency Course: Patient and family updated on workup and need for admission <Angela Painter PA-C - Last Filed: 02/21/23 03:27> NETWORKER/PA Physician Supervision For this patient encounter, I reviewed the NETWORKER or PA documentation, treatment plan, and medical decision making; and I had hnix-[id number] time with this patient. <Arnulfo Castellanos
[2023-02-21 00:14] LABS: Basophils Percent Auto 0.4 % (0.2-1.2); Eosinophils Absolute Auto 0.1 K/mm3 (0-0.3); Eosinophils Percent Auto 0.8 % (0-4.4); Hematocrit 43.6 % (37.0-47.0); Hemoglobin 14.4 g/dL (12.0-15.0); Immature Granulocyte Absolute 0.04 K/mm3 (0.00-0.031); Immature Granulocyte Percent A 0.4 % (0-0.5); Lymphocytes Absolute Auto 1.37 K/mm3 (0.9-3.2); Lymphocytes Percent Auto 13.7 % (18.3-44.2); Mean Corpuscular Hemoglobin 28.5 pg (26-34); Mean Corpuscular Volume 86.3 fl (80-100); Monocytes Percent Auto 9.9 % (2.6-8.5); Neutrophils Absolute Auto 7.5 K/mm3 (1.3-6.7); Neutrophils Percent Auto 74.8 % (45.5-73.1); Platelet Count Result 275 k/mm3 (150-375); Red Blood Count 5.05 M/mm3 (4.2-5.4); Red Cell Distribution Width 12.5 % (11.5-14.5)
[2023-02-21 00:29] LABS: INR 0.9; Partial Thromboplastin Time 23.9 SECONDS (22.3-36.8); Prothrombin Time 12.9 Seconds (11.1-14.7)
[2023-02-21] MEDS: ASPIRIN 81 MG CHEWABLE TABLET 324 MG PO (00:30)
[2023-02-21] MEDS: ONDANSETRON INJ 4 MG/2 ML VIAL IV PUSH ×3 (00:31→20:26)
[2023-02-21] MEDS: PANTOPRAZOLE SODIUM IV 40 MG VIAL IV PUSH (00:31)
[2023-02-21] MEDS: MORPHINE SULFATE (*CRX) 4 MG/ML INJ IV PUSH ×4 (00:31→20:26)
[2023-02-21 00:50] LABS: D Dimer 0.98 ug/mL (<0.48)
[2023-02-21 00:56] LABS: Alanine Aminotransferase 537 U/L (6-35); Albumin Level 4.4 g/dL (3.5-5.1); Alkaline Phosphatase 186 U/L (38-126); Anion Gap 10 mmol/L (8-16); Bilirubin,Total 1.9 mg/dL (0.2-1.3); Blood Urea Nitrogen 15 mg/dL (7-17); Calcium 9.7 mg/dL (8.4-10.2); Carbon Dioxide 26 mmol/L (22-30); Chloride 102 mmol/L (98-107); Estimated CRCL calculation 58 ml/min; Estimated Glomerular Filt Rate > 60; Glucose 179 mg/dL (65-110); Potassium 3.5 mmol/L (3.4-5.0); Sodium 138 mmol/L (137-145)
[2023-02-21 01:03] LABS: Troponin I < 0.012 ng/mL (0.000-0.034)
--- NOTE | 2023-02-21 01:17 | PC.NURSE ---
Patient taken to CT at this time.
[2023-02-21 02:29] LABS: Aspartate Amino Transferase 982 U/L (14-36); Lipase 33270 U/L (23-300)
--- NOTE | 2023-02-21 03:17 | ECG_ITS ---
Measurements Intervals [place] Rate: 76 P: 54 [place]: 171 QRS: 16 QRSD: 114 T: 16 QT: 350 QTc: 396 Interpretive Statements SINUS RHYTHM WITH MARKED SINUS ARRHYTHMIA INFERIOR MYOCARDIAL INFARCTION , PROBABLY OLD [40+ ms Q WAVE AND/OR ST/T ABNORMALITY IN II/aVF] COMPARED TO ECG 02/21/2023 00:02:25 SINUS RHYTHM NOW PRESENT SINUS ARRHYTHMIA NOW PRESENT Electronically Signed On 02-21-2023 9:06:51 PROCESS WORKER by Nirmala Fulton M.D.
[2023-02-21 03:31] LABS: Lactic Acid Reflex 1.8 mmol/L (0.7-2.0)
[2023-02-21 03:42] LABS: Troponin I < 0.012 ng/mL (0.000-0.034)
[2023-02-21 04:16] LABS: Appearance Urine Clear (Clear); Bacteria Urine None Seen /hpf; Bilirubin Urine Negative (Negative); Blood Urine Negative (Negative); Color Urine Dark Yellow (Yellow); Glucose Urine UA 1+ mg/dL (Negative); Ketones Urine Negative (Negative); Leukocyte Esterase Ur Negative LEU/UL (Negative); Need Manual Microscopic Reviewed; Nitrate Urine Negative (Negative); Non Pathogenic Casts 0-2; Protein Urine 1+ mg/dL (Negative); RBC Urine 0-2 /hpf (0-2); Squamous Epithelial Cell Urine None seen /hpf (Few); pH Urine 6.5 (5.0-9.0)
[2023-02-21] MEDS: SODIUM CHLORIDE 0.9% IV 1,000 ML 125 ML IV CONT ×2 (04:26→15:45)
[2023-02-21 04:43] LABS: Add Urine Microscopic? YES; Specific Grav Ur 1.079 (1.001-1.035)
--- NOTE | 2023-02-21 05:36 | ADMGEN ---
This patient, Eleanor Muller, was admitted to [address] [facility] Surg Room 310-01 at 0527. Patient/family oriented to hospital policies and general routines including ID bracelet, bed and alarms, visiting hours, pain management, procedures, bathroom and other care routines, personal items, smoking policy, room service/diet, and visiting hours. Information on how to activate the Rapid Response Team has been discussed. Patient/Family are encouraged to report perceived risks to care and to ask questions if they do not understand what they are told or what they should do.
--- NOTE | 2023-02-21 05:55 | ECG_ITS ---
Measurements Intervals [place] Rate: 90 P: 52 [place]: 180 QRS: 11 QRSD: 100 T: 19 QT: 361 QTc: 443 Interpretive Statements SINUS RHYTHM INFERIOR MYOCARDIAL INFARCTION , PROBABLY OLD [40+ ms Q WAVE AND/OR ST/T ABNORMALITY IN II/aVF] COMPARED TO ECG 02/21/2023 03:21:21 NO SIGNIFICANT CHANGES Electronically Signed On 02-21-2023 9:09:44 CRYPTOGRAPHER by Nirmala Fulton M.D.
[2023-02-21 06:54] LABS: Troponin I < 0.012 ng/mL (0.000-0.034)
--- NOTE | 2023-02-21 13:19 | WPDANESEPPF ---
Anes - Initial Pre Proc Eval Date/Time: 02/21/23 13:19 Surgeon: Wilmar Black MD Pre Op Diagnosis: Gallstone Pancreatitis Patient Data Age: 62 Gender: F Height: 1.52 m Weight: 61.1 kg Last Vital Signs Temp 36.7 C 02/21/23 05:40 Pulse 87 02/21/23 05:40 Resp 18 02/21/23 05:40 BP 112/66 02/21/23 05:40 Pulse Ox 95 02/21/23 05:40 O2 Del Method Room Air 02/21/23 08:00 Allergies Allergy/AdvReac Type Severity Reaction Status Date / Time tetanus immune globulin AdvReac Mild RASH Verified 02/22/23 09:53 CHILD Home Medications Medication Instructions Recorded Confirmed Type acetaminophen 500 mg tablet 1,000 mg PO Q6H PRN pain #30 tabs 07/28/21 02/21/23 Rx (Tylenol Extra Strength) cholecalciferol (vitamin D3) 125 125 mcg PO DAILY 10/02/22 02/21/23 History mcg (5,000 unit) tablet (Vitamin D3) naproxen sodium 220 mg capsule 220 mg PO BID PRN pain 02/21/23 02/21/23 History Laboratory Tests 02/21/23 02/21/23 02/21/23 00:07 03:05 03:41 WBC 10.0 K/mm3 (4.5-10.0) RBC 5.05 M/mm3 (4.2-5.4) Hgb 14.4 g/dL (12.0-15.0) Hct 43.6 % (37.0-47.0) MCV 86.3 fl (80-100) MCH 28.5 pg (26-34) MCHC 33.0 g/dl (32-36) RDW 12.5 % (11.5-14.5) Plt Count 275 k/mm3 (150-375) MPV 8.0 fl (7.4-10.4) Immature Gran % (Auto) 0.4 % (0-0.5) Neut % (Auto) 74.8 H % (45.5-73.1) Lymph % (Auto) 13.7 L % (18.3-44.2) [place] % (Auto) 9.9 H % (2.6-8.5) Eos % (Auto) 0.8 % (0-4.4) Baso % (Auto) 0.4 % (0.2-1.2) Lymph # (Auto) 1.37 K/mm3 (0.9-3.2) [place] # (Auto) 1.0 H K/mm3 (0.1-0.6) Eos # (Auto) 0.1 K/mm3 (0-0.3) Baso # (Auto) 0.0 K/mm3 (0.0-0.1) Abs Immat Gran (auto) 0.04 H K/mm3 (0.00-0.031) Absolute Neuts (auto) 7.5 H K/mm3 (1.3-6.7) Absolute Nucleated RBC 0.0 K/mm3 (0.0-0.012) Nucleated RBC % 0.0 % (0.0-0.2) PT 12.9 Seconds (11.1-14.7) INR 0.9 APTT 23.9 SECONDS (22.3-36.8) D-Dimer 0.98 H ug/mL (<0.48) Sodium 138 mmol/L (137-145) Potassium 3.5 mmol/L (3.4-5.0) Chloride 102 mmol/L (98-107) Carbon Dioxide 26 mmol/L (22-30) Anion Gap 10 mmol/L (8-16) BUN 15 mg/dL (7-17) Creatinine 0.60 L mg/dL (0.7-1.0) Estim Creat Clear Calc 58 ml/min Estimated GFR > 60 (59 - ) Glucose 179 H mg/dL (65-110) Lactic Acid 1.8 mmol/L (0.7-2.0) Calcium 9.7 mg/dL (8.4-10.2) Total Bilirubin 1.9 H mg/dL (0.2-1.3) AST 982 H U/L (14-36) ALT 537 H U/L (6-35) Alkaline Phosphatase 186 H U/L (38-126) Troponin I < 0.012 ng/mL < 0.012 ng/mL (0.000-0.034) (0.000-0.034) Total Protein 7.0 g/dL (6.3-8.2) Albumin 4.4 g/dL (3.5-5.1) Lipase 63536 H U/L (23-300) Urine Color Dark yellow (Yellow) Urine Appearance Clear (Clear) Urine pH 6.5 (5.0-9.0) Ur Specific Cable 1.079 H (1.001-1.035) Urine Protein 1+ H mg/dL (Negative) Urine Glucose (UA) 1+ H mg/dL (Negative) Urine Ketones Negative mg/dL (Negative) Ur Blood (Man) Negative (Negative) Urine Nitrate Negative (Negative) Urine Bilirubin Negative (Negative) Urine Urobilinogen 1.0 mg/dL (<2.0) Add Ur Microanalysis Reviewed Leukocyte Esterase Rfl Negative CHELO/UL (Negative) Urine RBC 0-2 /hpf (0-2) Urine WBC 11-20 H /hpf Ur Squamous Epith Cells None seen /hpf (Few) Urine Bacteria None seen /hpf Urine Casts 0-2 02/21/23 05:58 WB
--- NOTE | 2023-02-21 13:33 | WPDGICN ---
Assessment and Plan Assessment and plan (1) Gallstone pancreatitis: Code(s): K85.10 - Biliary acute pancreatitis without necrosis or infection Status: Acute Assessment and Plan: new onset, CT scan reviewed and found small stone in bile duct she will need ERCP, will do it tomorrow to remove stone trend liver enzymes, npo and fluids will consult surgery (2) Choledocholithiasis: Code(s): K80.50 - Calculus of bile duct without cholangitis or cholecystitis without obstruction Status: Acute Assessment and Plan: ercp in am (3) Elevated liver enzymes: Code(s): R74.8 - Abnormal levels of other serum enzymes Status: Acute Assessment and Plan: biliary related but trend will get also hepatitis panel (4) Epigastric pain: Code(s): R10.13 - Epigastric pain Status: Acute (5) Nausea and vomiting in adult: Code(s): R11.2 - Nausea with vomiting, unspecified Status: Acute GI Consult Note Consult date/time: 02/21/23 13:33 Reason for consult: GS pancreatitis, elevated liver enzymes HPI: Eleanor Muller is a 62 year old female who presents to the ER for new onset epigastric pain started yesterday that got severe with radiation to her back then had nausea, vomiting. She also had kidney stones that required intervention but denies pancreatitis or GB problem, she does not drink alcohol. Also spinal stenosis and lately has been having more back pain than usual. Blood work c/w gallstone pancreatitis, wbc 10k, lipase 32k, bili 1.9, transaminases 500-900. CT scan reviewed, 3.5 mm distal common bile duct stone with dilatation of the common bile duct, intrahepatic bile ducts and pancreatic duct, bilateral renal cysts, Nonobstructive left nephrolithias Review of Systems Constitutional: Constitutional: Denies chills Eyes: Eyes: Denies blurry vision ENT: Reports Normal hearing present Cardiovascular: Cardiovascular: Denies chest pain Respiratory: Respiratory: Denies cough Gastrointestinal: Gastrointestinal: Reports abdominal pain, Reports nausea and Reports vomiting Genitourinary: Genitourinary: Denies hematuria Musculoskeletal: Musculoskeletal: Reports back pain Integumentary/Breasts: Skin/Breast: Denies rash Neurologic: Denies vertigo Psychiatric: Psychiatric: Denies behavioral changes [facility] Past Medical History Medical History (Updated 02/21/23 @ 13:38 by Jules Jarrett MD) Arthritis Elevated liver enzymes Epigastric pain Gallstone pancreatitis Nausea and vomiting in adult (normal spontaneous vaginal delivery) x3 Renal stones Surgical History Surgical History History of bilateral tubal ligation History of hysteroscopy 2009 with no abnormalities Hx of cystoscopy Hx of lithotripsy multiple S/P tonsillectomy Social History Social History Smoking status: Never smoker Second hand tobacco smoke exposure: Yes Alcohol intake: former Substance use: never Substance use type: does not use Do You Feel Safe in your Home?: Yes Lack of Transportation: No Lack of Food: Never True Current Housing: I Have Housing Concerned About Future Housing: No Difficulty Paying Gas/Electric Bills: No Difficulty Paying for Meds: No Currently Unemployed: No Education: High School Diploma/GED Difficulty w/ Childcare or Family Care: No Living arrangements: with family Spiritual care concerns: No Meds Home Medications and Allergies Home Medications Medication Instructions Recorded Confirmed Type acetaminophen 500 mg tablet 1,000 mg PO Q6H PRN pain #30 tabs 07/28/21 02/21/23 Rx (Tylenol Extra Strength) cholecalciferol (vitamin D3) 125 125 mcg PO DAILY 10/02/22 02/21/23 History mcg (5,000 unit) tablet (Vitamin D3) naproxen sodium 220 mg capsule 220 mg PO BID PRN pain
--- NOTE | 2023-02-21 13:55 | PM.IMHP ---
H&P: HPI History of Present Illness Date/Time: 02/21/23 13:55 Chief Complaint: Complaining of abdominal pain since the day before yesterday which is getting progressively worse Narrative: She is a very pleasant lady who is complaining of abdominal pain since yesterday, located in the epigastrium radiating to the back underneath both shoulder blades intensity to 4/5 of pain initially associated with nausea and vomiting. It got worse to the point that she describes is at 9/10 and the patient was brought to the ER for evaluation. Workup [place] [id number] and bile duct stone on imaging consistent with gallstone pancreatitis. Patient received p.r.n. meds for nausea vomiting and pain control and she is admitted for medical management and GI evaluation for workup and possible ERCP. Review of Systems Review of Systems: 14 systems were reviewed with pertinent positives and negatives per HPI. Except as documented in the HPI/progress notes, all other systems were reviewed and are negative. All systems reviewed & are unremarkable except as noted in HPI and below PMFSH Past Medical History Medical History Arthritis Elevated liver enzymes Epigastric pain Gallstone pancreatitis Nausea and vomiting in adult (normal spontaneous vaginal delivery) x3 Renal stones Surgical History Surgical History History of bilateral tubal ligation History of hysteroscopy 2009 with no abnormalities Hx of cystoscopy Hx of lithotripsy multiple S/P tonsillectomy Social History Social History Smoking status: Never smoker Second hand tobacco smoke exposure: Yes Alcohol intake: former Substance use: never Substance use type: does not use Do You Feel Safe in your Home?: Yes Lack of Transportation: No Lack of Food: Never True Current Housing: I Have Housing Concerned About Future Housing: No Difficulty Paying Gas/Electric Bills: No Difficulty Paying for Meds: No Currently Unemployed: No Education: High School Diploma/GED Difficulty w/ Childcare or Family Care: No Living arrangements: with family Spiritual care concerns: No Meds Home Medications and Allergies Home Medications Medication Instructions Recorded Confirmed Type acetaminophen 500 mg tablet 1,000 mg PO Q6H PRN pain #30 tabs 07/28/21 02/21/23 Rx (Tylenol Extra Strength) cholecalciferol (vitamin D3) 125 125 mcg PO DAILY 10/02/22 02/21/23 History mcg (5,000 unit) tablet (Vitamin D3) naproxen sodium 220 mg capsule 220 mg PO BID PRN pain 02/21/23 02/21/23 History Allergies Allergy/AdvReac Type Severity Reaction Status Date / Time tetanus immune globulin AdvReac Mild RASH Verified 02/21/23 00:12 CHILD Vital Signs Vital Signs - 24 hr 02/21/23 00:09 02/21/23 00:55 02/20/23 23:59 Temperature 36.4 C Pulse Rate 99 Respiratory Rate 22 H 21 H Blood Pressure 153/93 H Pulse Oximetry 97 97 97 Oxygen Delivery Room Air Room Air 02/21/23 00:00 02/21/23 00:01 02/21/23 00:02 Temperature Pulse Rate 100 105 H 99 Respiratory Rate 22 H 24 H 19 Blood Pressure 149/90 H 153/93 H Pulse Oximetry 98 96 98 Oxygen Delivery 02/21/23 00:15 02/21/23 00:33 02/21/23 00:46 Temperature Pulse Rate 91 97 93 Respiratory Rate 17 14 16 Blood Pressure Pulse Oximetry 96 97 96 Oxygen Delivery 02/21/23 01:00 02/21/23 01:15 02/21/23 01:37 Temperature Pulse Rate 89 91 97 Respiratory Rate 18 18 16 Blood Pressure Pulse Oximetry 94 94 95 Oxygen Delivery 02/21/23 01:45 02/21/23 01:48 02/21/23 02:00 Temperature Pulse Rate 89 95 90 Respiratory Rate 18 17 15 Blood Pressure 114/73 Pulse Oximetry 95 95 92 Oxygen Delivery 02/21/23 02:01 02/21/23 02:15 02/21/23 02:30 Temperature Pulse Rate 88 92 92 Re
[2023-02-22] VITALS (11 sets, daily range): BP systolic 101–156; BP diastolic 61–93; PULSE 81–100; RESP 14–19; TEMP 36.6–37.6; O2SAT 93–98
[2023-02-22] MEDS: SODIUM CHLORIDE 0.9% IV 1,000 ML 125 ML IV CONT ×3 (00:21→22:30)
[2023-02-22 06:14] LABS: Basophils Percent Auto 0.3 % (0.2-1.2); Eosinophils Absolute Auto 0.2 K/mm3 (0-0.3); Eosinophils Percent Auto 2.6 % (0-4.4); Hematocrit 38.3 % (37.0-47.0); Hemoglobin 12.3 g/dL (12.0-15.0); Immature Granulocyte Absolute 0.04 K/mm3 (0.00-0.031); Immature Granulocyte Percent A 0.5 % (0-0.5); Lymphocytes Absolute Auto 1.07 K/mm3 (0.9-3.2); Lymphocytes Percent Auto 12.3 % (18.3-44.2); Mean Corpuscular HGB Conc 32.1 g/dl (32-36); Mean Corpuscular Hemoglobin 28.9 pg (26-34); Mean Corpuscular Volume 90.1 fl (80-100); Mean Platelet Volume 8.1 fl (7.4-10.4); Monocytes Absolute Auto 0.9 K/mm3 (0.1-0.6); Neutrophils Absolute Auto 6.5 K/mm3 (1.3-6.7); Neutrophils Percent Auto 74.3 % (45.5-73.1); Platelet Count Result 216 k/mm3 (150-375); Red Blood Count 4.25 M/mm3 (4.2-5.4); White Blood Count 8.7 K/mm3 (4.5-10.0)
[2023-02-22 06:37] LABS: Albumin Level 3.4 g/dL (3.5-5.1); Alkaline Phosphatase 197 U/L (38-126); Anion Gap 7 mmol/L (8-16); Aspartate Amino Transferase 544 U/L (14-36); Bilirubin,Total 1.7 mg/dL (0.2-1.3); Blood Urea Nitrogen 9 mg/dL (7-17); Calcium 8.9 mg/dL (8.4-10.2); Carbon Dioxide 21 mmol/L (22-30); Chloride 113 mmol/L (98-107); Estimated CRCL calculation 77 ml/min; Estimated Glomerular Filt Rate > 60; Glucose 83 mg/dL (65-110); Magnesium 2.1 mg/dL (1.6-2.3); Phosphorus 2.6 mg/dL (2.5-4.5); Potassium 3.7 mmol/L (3.4-5.0); Sodium 141 mmol/L (137-145)
[2023-02-22 07:32] LABS: Hepatitis B Surface Antigen Negative (Negative)
[2023-02-22 07:37] LABS: HAV RESULT Negative (Negative); Hepatitis B Core IgM Result Negative (Negative)
--- NOTE | 2023-02-22 09:40 | PC.NURSE ---
Gave report to Ila in GI lab about pt.
[2023-02-22] MEDS: LACTATED RINGERS 1,000 ML 150 ML IV CONT (10:04)
[2023-02-22] MEDS: INDOMETHACIN 50 MG SUPP.RECT RECTAL (10:23)
[2023-02-22 10:33] LABS: Hepatitis C Virus Antibody Negative (Negative)
--- NOTE | 2023-02-22 11:47 | WPDCN ---
Assessment and Plan Assessment and plan (1) Gallstone pancreatitis: Code(s): K85.10 - Biliary acute pancreatitis without necrosis or infection Status: Acute Assessment and Plan: Gallstone pancreatitis likely due to passage of common bile duct into the common bile duct. CT scan shows a 3.5mm stone in the distal common bile duct. Patient is to undergo ERCP today for removal of the bile duct stone and sphincterotomy. (2) Choledocholithiasis: Code(s): K80.50 - Calculus of bile duct without cholangitis or cholecystitis without obstruction Status: Acute Assessment and Plan: Patient undergo ERCP today. After the pancreatitis improved then since she has residual cholelithiasis and some evidence of mild gallbladder wall thickening on MRCP and likely mild acute cholecystitis rectum laparoscopic cholecystectomy possible open cholecystectomy use during this admission or in an interval fashion next few weeks. HPI Data of Consult Date/Time: 02/22/23 11:47 Requesting Physician: Wilmar Black MD Primary Care Provider: Jose Walker MD Consult Narrative Reason for consult: Gallstone pancreatitis and acute cholecystitis secondary to cholelithiasis. Narrative: Eleanor Muller is a 62 year old female I have been asked to see for gallstone pancreatitis. She was admitted to the hospital and had elevated paste level of 33,000. He was having epigastric and right upper quadrant abdominal pain. Total bilirubin was increased to 1.9 and she had mild elevations of her AST, ALT, and alkaline phosphatase. CT scan and pelvis showed acute inflammatory changes in the pancreas consistent with gallstone pancreatitis. MRCP was performed showing likely distal common bile duct stone with extrahepatic and intrahepatic bile ducts. She is scheduled to get an ERCP today. White blood cell count was normal. White blood cell count was normal. Review of Systems Review of Systems: The remainder of the review of systems to include constitutional, HEENT, cardiovascular, respiratory, GI, , integumentary, musculoskeletal, endocrine, immunologic, hematologic, psychiatric, and neurologic are all negative except for which is mentioned above in the HPI. [facility] Past Medical History Medical History Arthritis Elevated liver enzymes Epigastric pain Gallstone pancreatitis Nausea and vomiting in adult (normal spontaneous vaginal delivery) x3 Renal stones Surgical History Surgical History History of bilateral tubal ligation History of hysteroscopy 2009 with no abnormalities Hx of cystoscopy Hx of lithotripsy multiple S/P tonsillectomy Social History Social History Smoking status: Never smoker Second hand tobacco smoke exposure: Yes Alcohol intake: former Substance use: never Substance use type: does not use Do You Feel Safe in your Home?: Yes Lack of Transportation: No Lack of Food: Never True Current Housing: I Have Housing Concerned About Future Housing: No Difficulty Paying Gas/Electric Bills: No Difficulty Paying for Meds: No Currently Unemployed: No Education: High School Diploma/GED Difficulty w/ Childcare or Family Care: No Living arrangements: with family Spiritual care concerns: No Meds Home Medications and Allergies Home Medications Medication Instructions Recorded Confirmed Type acetaminophen 500 mg tablet 1,000 mg PO Q6H PRN pain #30 tabs 07/28/21 02/21/23 Rx (Tylenol Extra Strength) cholecalciferol (vitamin D3) 125 125 mcg PO DAILY 10/02/22 02/21/23 History mcg (5,000 unit) tablet (Vitamin D3) naproxen sodium 220 mg capsule 220 mg PO BID PRN pain 02/21/23 02/21/23 History Allergies Allergy/AdvReac Type Severity Reaction Status Date / Time tetanus immune globulin
[2023-02-22 12:09] LABS: Alanine Aminotransferase 823 U/L (6-35)
--- NOTE | 2023-02-22 12:51 | PC.NURSE ---
Pt just got back from GI lab and this nurse got report from Ila
--- NOTE | 2023-02-22 18:06 | PM.IMPN ---
Progress Note: A&P Assessment and Plan (1) Nausea and vomiting in adult: Code(s): R11.2 - Nausea with vomiting, unspecified Status: Acute (2) Epigastric pain: Code(s): R10.13 - Epigastric pain Status: Acute (3) Elevated liver enzymes: Code(s): R74.8 - Abnormal levels of other serum enzymes Status: Acute (4) Gallstone pancreatitis: Code(s): K85.10 - Biliary acute pancreatitis without necrosis or infection Status: Acute (5) Choledocholithiasis: Code(s): K80.50 - Calculus of bile duct without cholangitis or cholecystitis without obstruction Status: Acute Plan Admit patient to medical unit under full inpatient status Patient kept NPO except meds patient from ER Continue with IV hydration with normal saline at 125 cc/hour P.r.n. Zofran ordered for nausea and vomiting P.r.n. morphine ordered for pain control MRCP ordered which showed intrahepatic and extrahepatic biliary duct dilatation and gallbladder distention with gallbladder wall thickening suggesting inflammation Patient evaluated by GI who confirmed gallstones pancreatitis due to stones in the common bile duct and took patient for ERCP today May start patient on clear liquid diet if okay with the GI after ERCP Monitor LFTs and lipase levels closely Patient seen and evaluated by General surgery who want to follow-up on ERCP and consider surgery only as needed Further management recommendations as per GI and general surgeon ? Patient seen and examined at bedside during my morning rounds ? Collaborated with patient's nurse at the bedside in detail and addressed all concerns ? Labs, electrolytes, radiology, investigations and test results reviewed ? Consult/Nursing/Ancilliary notes on the chart reviewed and appreciated ? Spoke with patient/family at the bedside and answered all the questions that they had Repeat labs in a.m. Electrolyte replacement as per protocol. Patient will be monitored very closely on the floor. Further recommendations as per the hospital course. Subjective Date/time seen: 02/22/23 18:06 Interval history: Patient underwent ERCP earlier today. I saw her in the afternoon. She is feeling better. Abdominal pain has improved Review of Systems Review of Systems: 14 systems were reviewed with pertinent positives and negatives per HPI. Except as documented in the HPI/progress notes, all other systems were reviewed and are negative. All systems reviewed & are unremarkable except as noted in HPI and below Exam Narrative: PHYSICAL EXAMINATION: Vital signs: Please see the chart General physical exam: Patient lying in bed, very pleasant and cooperative with exam, complains of right epigastric pain radiating to the back Head/eyes: Atraumatic, EOMI, PERRLA ENT: Moist mucous membranes, nasal passages clear Neck: Supple, full range of motion, trachea midline CVS: S1 + S2, regular rate and rhythm, no murmurs Respiratory: Bilaterally fair air entry in both lung erickson, mild B/L crackles, symmetric chest expansion, no distress Abdomen: Soft, ++ epigastric tenderness on palpation, bowel sounds +ve, no organomegaly Extremities: No clubbing, no cyanosis, no edema, no calf tenderness Musculoskeletal: Moves all, adequate range of motion, no muscle spasms Skin: Warm, dry, no jaundice, no cyanosis Neurological: Awake, alert, oriented x 3, cranial nerves II-XII intact, no focal neurological deficits Psychiatric: Normal mood, non suicidal Objective Data Vital Signs Vital Signs: Vital Signs - 24 hr 02/21/23 20:00 02/22/23 00:00 02/22/23 04:00 Temperature 37.1 C 36.6 C 36.7 C Pulse Rate 85 83 92 Respiratory Rate 18 14 14 Blood Pressure 129/73 101/61 108/72 Pulse Oximetry 95 94 93 Oxygen Delivery Oxygen Flow Rate 02/22/23 09:52 02/22/23 11:38 02/22/23 11:48 Temperature 36.9 C 36.6 C Pulse Rate 100 81 89 Respiratory Rate 18 19 16 Blood Pressure 136/76 125/63 125/67 Pulse Oximetry 9
[2023-02-23 05:14] VITALS: BP 125/76; PULSE 84; RESP 16; TEMP 37.2; O2SAT 96
[2023-02-23] MEDS: SODIUM CHLORIDE 0.9% IV 1,000 ML 125 ML IV CONT (06:31)
[2023-02-23 06:38] LABS: Basophils Percent Auto 0.5 % (0.2-1.2); Eosinophils Absolute Auto 0.2 K/mm3 (0-0.3); Eosinophils Percent Auto 2.2 % (0-4.4); Hematocrit 37.1 % (37.0-47.0); Hemoglobin 11.7 g/dL (12.0-15.0); Immature Granulocyte Absolute 0.03 K/mm3 (0.00-0.031); Immature Granulocyte Percent A 0.3 % (0-0.5); Lymphocytes Absolute Auto 2.29 K/mm3 (0.9-3.2); Lymphocytes Percent Auto 26.4 % (18.3-44.2); Mean Corpuscular HGB Conc 31.5 g/dl (32-36); Mean Corpuscular Hemoglobin 28.5 pg (26-34); Mean Corpuscular Volume 90.5 fl (80-100); Mean Platelet Volume 8.3 fl (7.4-10.4); Monocytes Absolute Auto 0.8 K/mm3 (0.1-0.6); Monocytes Percent Auto 9.3 % (2.6-8.5); Neutrophils Absolute Auto 5.3 K/mm3 (1.3-6.7); Neutrophils Percent Auto 61.3 % (45.5-73.1); Platelet Count Result 223 k/mm3 (150-375); Red Cell Distribution Width 12.9 % (11.5-14.5); White Blood Count 8.7 K/mm3 (4.5-10.0)
[2023-02-23 06:56] LABS: Alanine Aminotransferase 532 U/L (6-35); Albumin Level 3.3 g/dL (3.5-5.1); Alkaline Phosphatase 188 U/L (38-126); Anion Gap 8 mmol/L (8-16); Aspartate Amino Transferase 179 U/L (14-36); Bilirubin,Total 0.9 mg/dL (0.2-1.3); Blood Urea Nitrogen 6 mg/dL (7-17); Calcium 8.6 mg/dL (8.4-10.2); Carbon Dioxide 21 mmol/L (22-30); Chloride 111 mmol/L (98-107); Estimated CRCL calculation 77 ml/min; Estimated Glomerular Filt Rate > 60; Glucose 93 mg/dL (65-110); Lipase 1115 U/L (23-300); Potassium 3.3 mmol/L (3.4-5.0); Sodium 140 mmol/L (137-145)
[2023-02-23] MEDS: POTASSIUM CHLORIDE 20 MEQ ER TABLET 40 MEQ PO (09:30)
--- NOTE | 2023-02-23 10:39 | WPDPN ---
Progress Note: A&P Assessment and Plan (1) Gallstone pancreatitis: Code(s): K85.10 - Biliary acute pancreatitis without necrosis or infection Status: Acute Assessment and Plan: Patient does not have obvious evidence of acute cholecystitis although she still has cholelithiasis. She would like to see with getting her gallbladder removed during this hospitalization. I think she still needs to recover from pancreatitis at least for 1 to 2 more days. Her liver enzymes are decreasing her lipase is down from 33,000 to 1100 today. She has tolerated a full liquid diet. We will go and advance to a low-fat diet today. Recheck labs tomorrow. Probably proceed with a laparoscopic cholecystectomy possible open cholecystectomy during this admission in the next couple of days. (2) Elevated liver enzymes: Code(s): R74.8 - Abnormal levels of other serum enzymes Status: Acute Assessment and Plan: Decreasing. We will continue to monitor. (3) Choledocholithiasis: Code(s): K80.50 - Calculus of bile duct without cholangitis or cholecystitis without obstruction Status: Acute Assessment and Plan: ERCP yesterday showed no retained common bile duct stone. It may have passed. Liver enzymes are all decreasing and lipase is down to 1100. Recommend laparoscopic cholecystectomy possible conversion open cholecystectomy during this admission. Subjective Date/time seen: 02/23/23 10:39 Interval history: Patient doing better today. Only minimal back pain and minimal epigastric pain. No nausea vomiting. She had ERCP yesterday, no stone was seen so it must the passed. She tolerated full liquid diet today. No fever. Lipase is markedly decreased. Liver enzymes are also decreasing but still mildly elevated. Total bilirubin is decreased as well. Exam Const: General: comfortable and no acute distress Resp: Effort & Inspection: normal respiratory effort Auscultation: clear to auscultation bilaterally Cardio: Rate: regular rate Rhythm: regular rhythm GI: Other: Abdomen is soft and nondistended. Minimal tenderness epigastric region. No masses. Neuro: General: gait normal Sensory Exam: normal sensation Extrem: General: normal to inspection Psych: Mental Status: mental status grossly normal Affect: normal affect Objective Data Vital Signs Vital Signs: Vital Signs - 24 hr 02/22/23 11:38 02/22/23 11:48 02/22/23 11:58 Temperature 36.6 C Pulse Rate 81 89 86 Respiratory Rate 19 16 17 Blood Pressure 125/63 125/67 134/72 Pulse Oximetry 94 96 98 Oxygen Delivery Simple Face Mask Simple Face Mask Room Air Oxygen Flow Rate 10 6 02/22/23 12:08 02/22/23 12:18 02/22/23 12:28 Temperature Pulse Rate 89 90 87 Respiratory Rate 18 15 16 Blood Pressure 148/80 H 154/86 H 156/93 H Pulse Oximetry 94 96 98 Oxygen Delivery Room Air Room Air Room Air Oxygen Flow Rate 02/22/23 16:00 02/22/23 22:13 02/23/23 05:14 Temperature 37.6 C 37.3 C 37.2 C Pulse Rate 87 82 84 Respiratory Rate 16 18 16 Blood Pressure 142/83 H 127/72 125/76 Pulse Oximetry 98 97 96 Oxygen Delivery Oxygen Flow Rate 02/23/23 08:00 Temperature Pulse Rate Respiratory Rate Blood Pressure Pulse Oximetry Oxygen Delivery Room Air Oxygen Flow Rate Intake/Output Intake/Output: Intake & Output 02/20/23 02/21/23 02/22/23 02/23/23 23:59 23:59 23:59 23:59 Intake Total 1999 2940 1300 Balance 1999 2940 1300 Meds/Results Medications: Active Medications Generic Name Dose Route Start Last Admin Trade Name Freq PRN Reason Stop Dose Admin Al Hydrox/Mg Hydrox/Simethicone 30 ml 02/21/23 14:57 Mag Hydrox/Al Hydrox/Simeth 30 Ml Udc PO QID PRN Dyspepsia Sodium Chloride 1,000 mls @ 125 mls/hr 02/21/23 03:20 02/23/23 06:31 Normal Saline Iv IV CONT 125 mls/hr .Q8H JUAN Administration Morphine Sulfate 4 mg 02/21/23 11:39 02/21/23 20:26 Morphine Sulfate
[2023-02-23 11:52] VITALS: TEMP 36.9
--- NOTE | 2023-02-23 13:13 | WPDGIPROGNO ---
Progress Note: A&P Assessment and Plan (1) Choledocholithiasis: Code(s): K80.50 - Calculus of bile duct without cholangitis or cholecystitis without obstruction Status: Acute Assessment and Plan: already passed, ercp yesterday dilated bile duct and was clean will need interval cholecystectomy, timing by surgery (2) Gallstone pancreatitis: Code(s): K85.10 - Biliary acute pancreatitis without necrosis or infection Status: Acute Assessment and Plan: clinically better and liver enzymes trending down (3) Nausea and vomiting in adult: Code(s): R11.2 - Nausea with vomiting, unspecified Status: Acute (4) Epigastric pain: Code(s): R10.13 - Epigastric pain Status: Acute (5) Elevated liver enzymes: Code(s): R74.8 - Abnormal levels of other serum enzymes Status: Acute Subjective Date/time seen: 02/23/23 13:13 Interval history: ercp yesterday, did not find stone after sweeping bile duct she is doing better today, less pain Review of Systems Review of Systems: All systems reviewed & are unremarkable except as noted in HPI and below Exam Const: General: comfortable and no acute distress HENMT: Face/Nose/Sinus: Normal nares present Eyes: Sclera: sclerae normal Neck: Neck: supple Resp: Effort & Inspection: normal respiratory effort Auscultation: clear to auscultation bilaterally Cardio: Rate: regular rate Rhythm: regular rhythm GI: GI Palp: Yes Soft to palpation Auscultation: normal bowel sounds Other: Abdomen is soft and nondistended. Minimal tenderness epigastric region. No masses. Skin: General skin exam: normal color Neuro: General: gait normal Motor exam (neuro): 5/5 motor strength present throughout Sensory Exam: normal sensation Extrem: General: normal to inspection Psych: Mental Status: mental status grossly normal Affect: normal affect Objective Data Vital Signs Vital Signs: Vital Signs - 24 hr 02/22/23 16:00 02/22/23 22:13 02/23/23 05:14 Temperature 99.6 F 99.1 F 99 F Pulse Rate 87 82 84 Respiratory Rate 16 18 16 Blood Pressure 142/83 H 127/72 125/76 Pulse Oximetry 98 97 96 Oxygen Delivery 02/23/23 08:00 02/23/23 11:52 Temperature 98.4 F Pulse Rate Respiratory Rate Blood Pressure Pulse Oximetry Oxygen Delivery Room Air Intake/Output Intake/Output: Intake & Output 02/20/23 02/21/23 02/22/23 02/23/23 23:59 23:59 23:59 23:59 Intake Total 1999 2940 1418 Balance 1999 2940 1418 Meds/Results Medications: Active Medications Generic Name Dose Route Start Last Admin Trade Name Freq PRN Reason Stop Dose Admin Acetaminophen 650 mg 02/23/23 10:56 Acetaminophen 325 Mg Tablet PO Q6H PRN Mild Pain (1-3) or Fever Al Hydrox/Mg Hydrox/Simethicone 30 ml 02/21/23 14:57 Mag Hydrox/Al Hydrox/Simeth 30 Ml Udc PO QID PRN Dyspepsia Morphine Sulfate 4 mg 02/21/23 11:39 02/21/23 20:26 Morphine Sulfate (*Crx) 4 Mg/Ml Inj IV PUSH 4 mg Q4H PRN Administration Pain Rated 7-10 Ondansetron HCl 4 mg 02/21/23 11:39 02/21/23 20:26 Ondansetron Inj 4 Mg/2 Ml Vial IV PUSH 4 mg Q6H PRN Administration Nausea And Vomiting Radiology Results: ITS Impressions Chest X-Ray 02/21/23 08:00 IMPRESSION: No active cardiopulmonary disease Chest/Abdomen/Pelvis CTA 02/21/23 09:39 IMPRESSION: 3.5 mm distal common bile duct stone with dilatation of the common bile duct, intrahepatic bile ducts and pancreatic duct Bilateral renal cysts Nonobstructive left nephrolithiasis Normal appendix Mild sigmoid colon diverticulosis Cardiomegaly No evidence of pulmonary embolism MRCP 02/21/23 16:42 IMPRESSION: 1. Intrahepatic and extrahepatic biliary duct dilatation and gallbladder distention with gallbladder wall thickening suggesting inflammation. No visible cholelithiasis or choledocholithiasis by MRI. Note that the 4 mm calcifi
[2023-02-23 14:27] VITALS: BP 106/62; PULSE 74; RESP 18; TEMP 36.9; O2SAT 98
--- NOTE | 2023-02-23 16:30 | PM.IMPN ---
Progress Note: A&P Assessment and Plan (1) Nausea and vomiting in adult: Code(s): R11.2 - Nausea with vomiting, unspecified Status: Acute (2) Epigastric pain: Code(s): R10.13 - Epigastric pain Status: Acute (3) Elevated liver enzymes: Code(s): R74.8 - Abnormal levels of other serum enzymes Status: Acute (4) Gallstone pancreatitis: Code(s): K85.10 - Biliary acute pancreatitis without necrosis or infection Status: Acute (5) Choledocholithiasis: Code(s): K80.50 - Calculus of bile duct without cholangitis or cholecystitis without obstruction Status: Acute Plan Admit patient to medical unit under full inpatient status Patient kept NPO except meds patient from ER P.r.n. Zofran ordered for nausea and vomiting P.r.n. morphine ordered for pain control MRCP ordered which showed intrahepatic and extrahepatic biliary duct dilatation and gallbladder distention with gallbladder wall thickening suggesting inflammation Patient evaluated by GI who confirmed gallstones pancreatitis due to stones in the common bile duct and took patient for ERCP ERCP showed dilated common bile duct most likely with the passed stone Surgery evaluated the patient and want patient to undergo interval cholecystectomy during this visit Patient's diet advanced from clear liquid to full liquid to low-fat diet Monitor LFTs and lipase levels closely LFTs are slowly downtrending [place] [address] on admission to 1115 today Further management recommendations as per GI and general surgeon ? Patient seen and examined at bedside during my morning rounds ? Collaborated with patient's nurse at the bedside in detail and addressed all concerns ? Labs, electrolytes, radiology, investigations and test results reviewed ? Consult/Nursing/Ancilliary notes on the chart reviewed and appreciated ? Spoke with patient/family at the bedside and answered all the questions that they had Repeat labs in a.m. Electrolyte replacement as per protocol. Patient will be monitored very closely on the floor. Further recommendations as per the hospital course. Subjective Date/time seen: 02/23/23 16:30 Interval history: Patient sitting in bed during my morning rounds. Feeling better today. Abdominal pain is improving. Surgery wants to do cholecystectomy during this visit. Review of Systems Review of Systems: 14 systems were reviewed with pertinent positives and negatives per HPI. Except as documented in the HPI/progress notes, all other systems were reviewed and are negative. All systems reviewed & are unremarkable except as noted in HPI and below Exam Narrative: PHYSICAL EXAMINATION: Vital signs: Please see the chart General physical exam: Patient lying in bed, very pleasant and cooperative with exam, complains of right epigastric pain radiating to the back Head/eyes: Atraumatic, EOMI, PERRLA ENT: Moist mucous membranes, nasal passages clear Neck: Supple, full range of motion, trachea midline CVS: S1 + S2, regular rate and rhythm, no murmurs Respiratory: Bilaterally fair air entry in both lung erickson, mild B/L crackles, symmetric chest expansion, no distress Abdomen: Soft, + mild epigastric tenderness on palpation, bowel sounds +ve, no organomegaly Extremities: No clubbing, no cyanosis, no edema, no calf tenderness Musculoskeletal: Moves all, adequate range of motion, no muscle spasms Skin: Warm, dry, no jaundice, no cyanosis Neurological: Awake, alert, oriented x 3, cranial nerves II-XII intact, no focal neurological deficits Psychiatric: Normal mood, non suicidal Objective Data Vital Signs Vital Signs: Vital Signs - 24 hr 02/22/23 22:13 02/23/23 05:14 02/23/23 08:00 Temperature 37.3 C 37.2 C Pulse Rate 82 84 Respiratory Rate 18 16 Blood Pressure 127/72 125/76 Pulse Oximetry 97 96 Oxygen Delivery Room Air 02/23/23 11:52 02/23/23 14:27 Temperature 36.9 C 36.9 C Pulse Rate 74 Respira
[2023-02-23 20:00] VITALS: BP 108/69; PULSE 72; RESP 13; TEMP 36.4; O2SAT 96
[2023-02-23 23:35] VITALS: BP 123/71; PULSE 71; RESP 13; TEMP 36.5; O2SAT 97
[2023-02-24 04:00] VITALS: BP 121/76; PULSE 74; RESP 13; TEMP 36.6; O2SAT 96
[2023-02-24 07:54] VITALS: BP 127/81; PULSE 76; RESP 20; TEMP 36.5; O2SAT 96
[2023-02-24 09:07] LABS: Basophils Absolute Auto 0.1 K/mm3 (0.0-0.1); Basophils Percent Auto 1.2 % (0.2-1.2); Eosinophils Absolute Auto 0.3 K/mm3 (0-0.3); Eosinophils Percent Auto 5.6 % (0-4.4); Hematocrit 42.2 % (37.0-47.0); Hemoglobin 13.7 g/dL (12.0-15.0); Immature Granulocyte Absolute 0.02 K/mm3 (0.00-0.031); Immature Granulocyte Percent A 0.3 % (0-0.5); Lymphocytes Absolute Auto 1.66 K/mm3 (0.9-3.2); Lymphocytes Percent Auto 28.2 % (18.3-44.2); Mean Corpuscular HGB Conc 32.5 g/dl (32-36); Mean Corpuscular Volume 89.2 fl (80-100); Mean Platelet Volume 8.4 fl (7.4-10.4); Monocytes Absolute Auto 0.5 K/mm3 (0.1-0.6); Monocytes Percent Auto 9.2 % (2.6-8.5); Neutrophils Absolute Auto 3.3 K/mm3 (1.3-6.7); Neutrophils Percent Auto 55.5 % (45.5-73.1); Platelet Count Result 296 k/mm3 (150-375); Red Blood Count 4.73 M/mm3 (4.2-5.4); Red Cell Distribution Width 12.8 % (11.5-14.5); White Blood Count 5.9 K/mm3 (4.5-10.0)
[2023-02-24 09:32] LABS: Alanine Aminotransferase 440 U/L (6-35); Albumin Level 3.8 g/dL (3.5-5.1); Alkaline Phosphatase 181 U/L (38-126); Anion Gap 8 mmol/L (8-16); Aspartate Amino Transferase 100 U/L (14-36); Bilirubin,Total 0.8 mg/dL (0.2-1.3); Blood Urea Nitrogen 6 mg/dL (7-17); Calcium 9.3 mg/dL (8.4-10.2); Carbon Dioxide 26 mmol/L (22-30); Chloride 105 mmol/L (98-107); Estimated CRCL calculation 66 ml/min; Estimated Glomerular Filt Rate > 60; Glucose 98 mg/dL (65-110); Lipase 647 U/L (23-300); Potassium 3.6 mmol/L (3.4-5.0); Sodium 139 mmol/L (137-145)
--- NOTE | 2023-02-24 10:50 | WPDPN ---
Progress Note: A&P Assessment and Plan (1) Gallstone pancreatitis: Code(s): K85.10 - Biliary acute pancreatitis without necrosis or infection Status: Acute Assessment and Plan: Patient feels much better and her pancreatitis is resolving. Lipase is down to 650. Liver enzymes are also decreasing towards normal. She now has no real abdominal pain. Tolerating low-fat diet without difficulty. We will go ahead proceed with a laparoscopic cholecystectomy tomorrow. The operative schedule would not accommodate adding her case on today. Is okay with waiting till tomorrow. I did discuss with her that I will be leaving [facility] on vacation and that I have made arrangements with Dr. Russell Santos to perform her laparoscopic cholecystectomy before she leaves the hospital. She is agreeable to this plan. Risks, benefits, indications, and expected outcomes were discussed with the patient and/or family members. Specific risks to include bleeding and possible need for blood transfusion, infection, bile leak, injury to other organs, common bile duct injury, and conversion to open cholecystectomy has been discussed. I have answered all their questions and they agreed to proceed with surgery as outlined above. (2) Cholelithiasis: Code(s): K80.20 - Calculus of gallbladder without cholecystitis without obstruction Status: Acute Assessment and Plan: Residual cholelithiasis without obvious evidence of acute cholecystitis. Recommend laparoscopic cholecystectomy to prevent further episodes of gallstone pancreatitis. Subjective Date/time seen: 02/24/23 10:50 Interval history: Patient feels much better today. The no abdominal pain. Tolerating low-fat diet. Lipase is down to 600. Other liver enzymes are decreasing down to normal. She feels pretty good like to proceed with getting her gallbladder removed before being discharged from the hospital. Exam GI: Other: Abdomen is soft and nondistended. No tenderness to palpation epigastric right upper quadrant of the abdomen. No masses. Objective Data Vital Signs Vital Signs: Vital Signs - 24 hr 02/23/23 11:52 02/23/23 14:27 02/23/23 20:00 Temperature 36.9 C 36.9 C 36.4 C L Pulse Rate 74 72 Respiratory Rate 18 13 Blood Pressure 106/62 108/69 Pulse Oximetry 98 96 Oxygen Delivery 02/23/23 20:00 02/23/23 23:35 02/24/23 04:00 Temperature 36.5 C 36.6 C Pulse Rate 71 74 Respiratory Rate 13 13 Blood Pressure 123/71 121/76 Pulse Oximetry 97 96 Oxygen Delivery Room Air 02/24/23 07:54 Temperature 36.5 C Pulse Rate 76 Respiratory Rate 20 Blood Pressure 127/81 Pulse Oximetry 96 Oxygen Delivery Intake/Output Intake/Output: Intake & Output 02/21/23 02/22/23 02/23/23 02/24/23 23:59 23:59 23:59 23:59 Intake Total 1999 3617 1554 1455 Balance 1999 2940 7698 1454 Meds/Results Medications: Active Medications Generic Name Dose Route Start Last Admin Trade Name Freq PRN Reason Stop Dose Admin Acetaminophen 650 mg 02/23/23 10:56 Acetaminophen 325 Mg Tablet PO Q6H PRN Mild Pain (1-3) or Fever Al Hydrox/Mg Hydrox/Simethicone 30 ml 02/21/23 14:57 Mag Hydrox/Al Hydrox/Simeth 30 Ml Udc PO QID PRN Dyspepsia Morphine Sulfate 4 mg 02/21/23 11:39 02/21/23 20:26 Morphine Sulfate (*Crx) 4 Mg/Ml Inj IV PUSH 4 mg Q4H PRN Administration Pain Rated 7-10 Ondansetron HCl 4 mg 02/21/23 11:39 02/21/23 20:26 Ondansetron Inj 4 Mg/2 Ml Vial IV PUSH 4 mg Q6H PRN Administration Nausea And Vomiting Radiology Results: ITS Impressions Chest X-Ray 02/21/23 08:00 IMPRESSION: No active cardiopulmonary disease Chest/Abdomen/Pelvis CTA 02/21/23 09:39 IMPRESSION: 3.5 mm distal common bile duct stone with dilatation of the common bile duct, intrahepatic bile ducts and pancreatic duct Bilateral renal cysts Nonobstructive left nephrolithiasis Normal appendix Mild sig
[2023-02-24 12:00] VITALS: BP 106/69; PULSE 81; RESP 20; TEMP 36.3; O2SAT 97
--- NOTE | 2023-02-24 15:16 | WPDGIPROGNO ---
Progress Note: A&P Assessment and Plan (1) Choledocholithiasis: Code(s): K80.50 - Calculus of bile duct without cholangitis or cholecystitis without obstruction Status: Acute Assessment and Plan: already passed, ercp dilated bile duct and was clean liver enzymes better and tolerating liquid diet, she is feeling much better surgery is planning cholecystectomy tomorrow, npo after midnight (2) Gallstone pancreatitis: Code(s): K85.10 - Biliary acute pancreatitis without necrosis or infection Status: Acute Assessment and Plan: clinically better and liver enzymes trending down will follow from afar (3) Nausea and vomiting in adult: Code(s): R11.2 - Nausea with vomiting, unspecified Status: Acute Assessment and Plan: resolved (4) Epigastric pain: Code(s): R10.13 - Epigastric pain Status: Acute Assessment and Plan: almost gone (5) Elevated liver enzymes: Code(s): R74.8 - Abnormal levels of other serum enzymes Status: Acute Assessment and Plan: trending down, normal bili Subjective Date/time seen: 02/24/23 15:16 Interval history: good recovery, less pain and comfortable Review of Systems Review of Systems: All systems reviewed & are unremarkable except as noted in HPI and below Exam Const: General: comfortable and no acute distress HENMT: Face/Nose/Sinus: Normal nares present Eyes: Sclera: sclerae normal Neck: Neck: supple Resp: Effort & Inspection: normal respiratory effort Auscultation: clear to auscultation bilaterally Cardio: Rate: regular rate Rhythm: regular rhythm GI: GI Palp: Yes Soft to palpation and No Tenderness to palpation present (GI) Auscultation: normal bowel sounds Other: Abdomen is soft and nondistended. Skin: General skin exam: normal color Neuro: General: gait normal Motor exam (neuro): 5/5 motor strength present throughout Sensory Exam: normal sensation Extrem: General: normal to inspection Psych: Mental Status: mental status grossly normal Affect: normal affect Objective Data Vital Signs Vital Signs: Vital Signs - 24 hr 02/23/23 20:00 02/23/23 20:00 02/23/23 23:35 Temperature 97.5 F L 97.7 F Pulse Rate 72 71 Respiratory Rate 13 13 Blood Pressure 108/69 123/71 Pulse Oximetry 96 97 Oxygen Delivery Room Air 02/24/23 04:00 02/24/23 07:54 02/24/23 12:00 Temperature 97.9 F 97.7 F 97.3 F L Pulse Rate 74 76 81 Respiratory Rate 13 20 20 Blood Pressure 121/76 127/81 106/69 Pulse Oximetry 96 96 97 Oxygen Delivery Intake/Output Intake/Output: Intake & Output 02/21/23 02/22/23 02/23/23 02/24/23 23:59 23:59 23:59 23:59 Intake Total 1999 2940 2696 1930 Balance 19990 2696 1930 Meds/Results Medications: Active Medications Generic Name Dose Route Start Last Admin Trade Name Freq PRN Reason Stop Dose Admin Acetaminophen 650 mg 02/23/23 10:56 Acetaminophen 325 Mg Tablet PO Q6H PRN Mild Pain (1-3) or Fever Al Hydrox/Mg Hydrox/Simethicone 30 ml 02/21/23 14:57 Mag Hydrox/Al Hydrox/Simeth 30 Ml Udc PO QID PRN Dyspepsia Lactated Ringer's 1,000 mls @ 100 mls/hr 02/24/23 23:55 Lr - Lactated Ringers Iv IV CONT .Q10H JUAN Ceftriaxone Sodium 1 gm in 50 mls @ 100 mls/hr 02/24/23 12:00 02/24/23 12:12 Rocephin 1 Gm/Ns 50 Ml IVPB 100 mls/hr Q24H JUAN Administration Morphine Sulfate 4 mg 02/21/23 11:39 02/21/23 20:26 Morphine Sulfate (*Crx) 4 Mg/Ml Inj IV PUSH 4 mg Q4H PRN Administration Pain Rated 7-10 Ondansetron HCl 4 mg 02/21/23 11:39 02/21/23 20:26 Ondansetron Inj 4 Mg/2 Ml Vial IV PUSH 4 mg Q6H PRN Administration Nausea And Vomiting Radiology Results: ITS Impressions Chest X-Ray 02/21/23 08:00 IMPRESSION: No active cardiopulmonary disease Chest/Abdomen/Pelvis CTA 02/21/23 09:39 IMPRESSION: 3.5 mm distal common bile duct stone with dil
[2023-02-24 16:00] VITALS: BP 109/74; PULSE 80; RESP 20; TEMP 36.8; O2SAT 97
--- NOTE | 2023-02-24 16:55 | PM.IMPN ---
Progress Note: A&P Assessment and Plan (1) Nausea and vomiting in adult: Code(s): R11.2 - Nausea with vomiting, unspecified Status: Acute (2) Epigastric pain: Code(s): R10.13 - Epigastric pain Status: Acute (3) Elevated liver enzymes: Code(s): R74.8 - Abnormal levels of other serum enzymes Status: Acute (4) Gallstone pancreatitis: Code(s): K85.10 - Biliary acute pancreatitis without necrosis or infection Status: Acute (5) Choledocholithiasis: Code(s): K80.50 - Calculus of bile duct without cholangitis or cholecystitis without obstruction Status: Acute Plan Admit patient to medical unit under full inpatient status Patient kept NPO except meds patient from ER P.r.n. Zofran ordered for nausea and vomiting P.r.n. morphine ordered for pain control MRCP ordered which showed intrahepatic and extrahepatic biliary duct dilatation and gallbladder distention with gallbladder wall thickening suggesting inflammation Patient evaluated by GI who confirmed gallstones pancreatitis due to stones in the common bile duct and took patient for ERCP ERCP showed dilated common bile duct most likely with the passed stone Surgery evaluated the patient and want patient to undergo interval cholecystectomy during this visit Patient's diet advanced from clear liquid to full liquid to low-fat diet which she is tolerating well Monitor LFTs and lipase levels closely which are slowly down trending LFTs are slowly downtrending [place] [address]12 on admission to 1115 and 647 today. Keep patient NPO except meds past midnight Follow-up closely with the GI and surgery for further treatment recommendations DC patient home in a couple days after cholecystectomy tomorrow ? Patient seen and examined at bedside during my morning rounds ? Collaborated with patient's nurse at the bedside in detail and addressed all concerns ? Labs, electrolytes, radiology, investigations and test results reviewed ? Consult/Nursing/Ancilliary notes on the chart reviewed and appreciated ? Spoke with patient/family at the bedside and answered all the questions that they had Repeat labs in a.m. Electrolyte replacement as per protocol. Patient will be monitored very closely on the floor. Further recommendations as per the hospital course. Time Spent With Patient Time with patient: 25 - 35 minutes Subjective Date/time seen: 02/24/23 16:55 Interval history: Patient pleasant cooperative to exam. Abdominal pain is slowly improving. She is going for cholecystectomy tomorrow. Review of Systems Review of Systems: 14 systems were reviewed with pertinent positives and negatives per HPI. Except as documented in the HPI/progress notes, all other systems were reviewed and are negative. All systems reviewed & are unremarkable except as noted in HPI and below Exam Narrative: PHYSICAL EXAMINATION: Vital signs: Please see the chart General physical exam: Patient lying in bed, very pleasant and cooperative with exam, complains of right epigastric pain radiating to the back Head/eyes: Atraumatic, EOMI, PERRLA ENT: Moist mucous membranes, nasal passages clear Neck: Supple, full range of motion, trachea midline CVS: S1 + S2, regular rate and rhythm, no murmurs Respiratory: Bilaterally fair air entry in both lung erickson, mild B/L crackles, symmetric chest expansion, no distress Abdomen: Soft, + mild epigastric tenderness on palpation, bowel sounds +ve, no organomegaly Extremities: No clubbing, no cyanosis, no edema, no calf tenderness Musculoskeletal: Moves all, adequate range of motion, no muscle spasms Skin: Warm, dry, no jaundice, no cyanosis Neurological: Awake, alert, oriented x 3, cranial nerves II-XII intact, no focal neurological deficits Psychiatric: Normal mood, non suicidal Objective Data Vital Signs Vital Signs: Vital Signs - 24 hr 02/23/23 20:00 02/23/23 20:00 02/23/23 23:35 Temperature 36.4 C L 36.
[2023-02-24 20:00] VITALS: BP 102/73; PULSE 89; RESP 18; TEMP 36.9; O2SAT 98
[2023-02-24] MEDS: LACTATED RINGERS 1,000 ML 100 ML IV CONT (23:56)
[2023-02-25] VITALS (11 sets, daily range): BP systolic 97–146; BP diastolic 54–90; PULSE 65–104; RESP 14–20; TEMP 36.2–37.2; O2SAT 94–100
[2023-02-25 06:32] LABS: Basophils Absolute Auto 0.1 K/mm3 (0.0-0.1); Basophils Percent Auto 0.9 % (0.2-1.2); Eosinophils Absolute Auto 0.5 K/mm3 (0-0.3); Eosinophils Percent Auto 7.3 % (0-4.4); Hematocrit 41.9 % (37.0-47.0); Hemoglobin 13.7 g/dL (12.0-15.0); Immature Granulocyte Absolute 0.02 K/mm3 (0.00-0.031); Immature Granulocyte Percent A 0.3 % (0-0.5); Lymphocytes Absolute Auto 2.17 K/mm3 (0.9-3.2); Lymphocytes Percent Auto 31.7 % (18.3-44.2); Mean Corpuscular HGB Conc 32.7 g/dl (32-36); Mean Corpuscular Hemoglobin 28.7 pg (26-34); Mean Corpuscular Volume 87.7 fl (80-100); Mean Platelet Volume 8.1 fl (7.4-10.4); Monocytes Absolute Auto 0.7 K/mm3 (0.1-0.6); Monocytes Percent Auto 10.1 % (2.6-8.5); Neutrophils Absolute Auto 3.4 K/mm3 (1.3-6.7); Neutrophils Percent Auto 49.7 % (45.5-73.1); Platelet Count Result 292 k/mm3 (150-375); Red Blood Count 4.78 M/mm3 (4.2-5.4); Red Cell Distribution Width 12.6 % (11.5-14.5); White Blood Count 6.9 K/mm3 (4.5-10.0)
[2023-02-25 06:50] LABS: Alanine Aminotransferase 292 U/L (6-35); Albumin Level 3.5 g/dL (3.5-5.1); Alkaline Phosphatase 142 U/L (38-126); Anion Gap 7 mmol/L (8-16); Aspartate Amino Transferase 55 U/L (14-36); Bilirubin,Total 0.6 mg/dL (0.2-1.3); Blood Urea Nitrogen 10 mg/dL (7-17); Calcium 9.3 mg/dL (8.4-10.2); Carbon Dioxide 28 mmol/L (22-30); Chloride 105 mmol/L (98-107); Estimated CRCL calculation 66 ml/min; Estimated Glomerular Filt Rate > 60; Glucose 103 mg/dL (65-110); Lipase 581 U/L (23-300); Potassium 4.1 mmol/L (3.4-5.0); Sodium 140 mmol/L (137-145)
[2023-02-25] MEDS: LACTATED RINGERS 1,000 ML 100 ML IV CONT (09:39)
--- NOTE | 2023-02-25 11:36 | WPDHPUPDATE1 ---
History and Physical Update Update Date/Time: 02/25/23 11:36 History and Physical has been reviewed, including an updated exam of the patient. There are NO changes in the patient's condition. Risks, benefits, and alternatives have been discussed and questions answered. Patient agrees to proceed with procedure.
--- NOTE | 2023-02-25 11:46 | WPDANESEPPF ---
Anes - Initial Pre Proc Eval Procedure: Operation Date: 02/22/23 09:00 Proposed Procedures p Endoscopic Retro Cholangiopancreatogram - Jules Jarrett MD Operation Date: 02/25/23 13:30 Proposed Procedures p Laparoscopic Cholecystectomy - Latasha Santos MD Date/Time: 02/25/23 11:46 Surgeon: Wilmar Black MD Pre Op Diagnosis: Gallstone Pancreatitis Patient Data Age: 62 Gender: F Height: 1.52 m Weight: 61.1 kg Last Vital Signs Temp 36.7 C 02/25/23 04:00 Pulse 65 02/25/23 04:00 Resp 18 02/25/23 04:00 BP 97/54 L 02/25/23 04:00 Pulse Ox 95 02/25/23 04:00 O2 Del Method Room Air 02/24/23 20:00 O2 Flow Rate 6 02/22/23 11:48 Allergies Allergy/AdvReac Type Severity Reaction Status Date / Time tetanus immune globulin AdvReac Mild RASH Verified 02/22/23 09:53 CHILD Home Medications Medication Instructions Recorded Confirmed Type acetaminophen 500 mg tablet 1,000 mg PO Q6H PRN pain #30 tabs 07/28/21 02/21/23 Rx (Tylenol Extra Strength) cholecalciferol (vitamin D3) 125 125 mcg PO DAILY 10/02/22 02/21/23 History mcg (5,000 unit) tablet (Vitamin D3) naproxen sodium 220 mg capsule 220 mg PO BID PRN pain 02/21/23 02/21/23 History Laboratory Tests 02/25/23 06:04 WBC 6.9 K/mm3 (4.5-10.0) RBC 4.78 M/mm3 (4.2-5.4) Hgb 13.7 g/dL (12.0-15.0) Hct 41.9 % (37.0-47.0) MCV 87.7 fl (80-100) MCH 28.7 pg (26-34) MCHC 32.7 g/dl (32-36) RDW 12.6 % (11.5-14.5) Plt Count 292 k/mm3 (150-375) MPV 8.1 fl (7.4-10.4) Immature Gran % (Auto) 0.3 % (0-0.5) Neut % (Auto) 49.7 % (45.5-73.1) Lymph % (Auto) 31.7 % (18.3-44.2) Merrick % (Auto) 10.1 H % (2.6-8.5) Eos % (Auto) 7.3 H % (0-4.4) Baso % (Auto) 0.9 % (0.2-1.2) Lymph # (Auto) 2.17 K/mm3 (0.9-3.2) Merrick # (Auto) 0.7 H K/mm3 (0.1-0.6) Eos # (Auto) 0.5 H K/mm3 (0-0.3) Baso # (Auto) 0.1 K/mm3 (0.0-0.1) Abs Immat Gran (auto) 0.02 K/mm3 (0.00-0.031) Absolute Neuts (auto) 3.4 K/mm3 (1.3-6.7) Absolute Nucleated RBC 0.0 K/mm3 (0.0-0.012) Nucleated RBC % 0.0 % (0.0-0.2) Sodium 140 mmol/L (137-145) Potassium 4.1 mmol/L (3.4-5.0) Chloride 105 mmol/L (98-107) Carbon Dioxide 28 mmol/L (22-30) Anion Gap 7 L mmol/L (8-16) BUN 10 mg/dL (7-17) Creatinine 0.60 L mg/dL (0.7-1.0) Estim Creat Clear Calc 66 ml/min Estimated GFR > 60 (59 - ) Glucose 103 mg/dL (65-110) Calcium 9.3 mg/dL (8.4-10.2) Total Bilirubin 0.6 mg/dL (0.2-1.3) AST 55 H U/L (14-36) ALT 292 H U/L (6-35) Alkaline Phosphatase 142 H U/L (38-126) Total Protein 6.0 L g/dL (6.3-8.2) Albumin 3.5 g/dL (3.5-5.1) Lipase 581 H U/L (23-300) Patient hx anesthesia problems: none Family hx anesthesia problems: none Results Review: All pre-operative results and documents have been reviewed as part of the pre-operative evaluation. [facility] Past Medical History Medical History Arthritis Elevated liver enzymes Epigastric pain Gallstone pancreatitis Nausea and vomiting in adult (normal spontaneous vaginal delivery) x3 Renal stones Surgical History Surgical History History of bilateral tubal ligation History of hysteroscopy 2009 with no abnormalities Hx of cystoscopy Hx of lithotripsy multiple S/P tonsillectomy Social History Social History Smoking status: Never smoker Second hand tobacco smoke exposure: Yes Alcohol intake: former Substance use: never Substance use type: does not use Do You Feel Safe in your Home?: Yes Lack of Transportation: No Lack of Food: Never True Current Housing: I Have Housing Concerned About Future Hous
[2023-02-25] MEDS: LACTATED RINGERS 1,000 ML 30 ML IV CONT (11:59)
[2023-02-25] MEDS: BUPIVACAINE/EPINEPHRINE 0.5% 10 ML VIAL 30 ML INFILTRATE (12:52)
--- NOTE | 2023-02-25 13:09 | W.PM.PROC2 ---
Procedure Note - Detailed Date of Procedure 02/25/23 Pre-op Diagnosis Gallstone Pancreatitis Post-op Diagnosis Same Procedure Performed Laparoscopic cholecystectomy Surgeon Latasha Santos MD Anesthesia General Indications 62-year-old female presented to the hospital c biliary pancreatitis. Pt is now ready for interval cholecystectomy. Findings Cholecystitis with cholelithiasis Description of Procedure The patient was taken to the operating room placed in the supine position. After adequate induction of general anesthesia, the patient was prepped and draped in normal sterile fashion. A time-out was then performed to verify the patient's identity as well as the procedure being performed. I then made a 5 mm incision in the infraumbilical region. Through this, a Veress needle was placed into the peritoneal cavity and CO2 gas was then insufflated. After adequate pneumoperitoneum was achieved, the Veress needle was removed and a 5 mm optiview trocar was placed through this incision under direct visualization. I then placed the laparoscope through this trocar site and under direct visualization placed a further 12 mm subxiphoid port as well as 2 additional 5 mm ports in the right upper abdomen. The gallbladder was then identified and was noted to be moderately inflamed, distended, and full of gallstones. I was able to place a grasper at the dome of the gallbladder and this was retracted anterior and cephalad up over the liver. A 2nd retractor was then placed at the infundibulum and retracted laterally, this allowed visualization of the triangle of Calot. I then was able to visualize the cystic duct in its entirety from its proximal insertion into the gallbladder, to its distal junction with the common hepatic/common bile duct junction. At this point, I carefully skeletonized the proximal cystic duct with the [place] dissector. I then clipped and transected the proximal cystic duct. Next I visualized the cystic artery. Again the artery was skeletonized, clipped, and transected. I then used the Bovie cautery to take down the peritoneal attachments of the gallbladder off the liver bed. Once the gallbladder specimen was completely detached, an endo-pouch was placed through the 12 mm port site. I then placed the gallbladder specimen into the Endo pouch and removed the endo-pouch from the 12 mm port site. The specimen will now be sent to pathology for further review. I then copiously irrigated the right upper quadrant. Hemostasis was noted in the liver bed, the clips were noted to be in good position on both the cystic duct stump and the cystic artery stump. No other pathology was noted in the right upper quadrant. I then moved the laparoscope to the subxiphoid port. No iatrogenic injury or other pathology was noted in the lower abdomen. I then closed the 12 mm trocar site under direct visualization using the Guerrero cone and 0 Vicryl suture. At this point, the abdomen was desufflated and all ports removed. All port sites were then closed with 4.O Monocryl subcuticular sutures. Dermabond was placed on each incision. The patient tolerated the procedure well, was extubated in the operating room postoperative and will be transferred to the recovery room in stable condition Estimated Blood Loss 5 Drains No Packing No Pathology Yes Complications No immediate complications Condition Stable Disposition PACU [facility] Billing Surgery - Charge Forward: Surgery Billing
[2023-02-25] MEDS: ONDANSETRON INJ 4 MG/2 ML VIAL IV PUSH (13:37)
[2023-02-25] MEDS: fentaNYL CITRATE INJ (*CRX) 100 MCG/2 ML VIAL 25 MCG IV PUSH ×2 (13:48→13:56)
[2023-02-25] MEDS: ACETAMINOPHEN 325 MG TABLET 650 MG PO (15:56)
--- NOTE | 2023-02-25 16:24 | PM.IMPN ---
Progress Note: A&P Assessment and Plan (1) Nausea and vomiting in adult: Code(s): R11.2 - Nausea with vomiting, unspecified Status: Acute (2) Epigastric pain: Code(s): R10.13 - Epigastric pain Status: Acute (3) Elevated liver enzymes: Code(s): R74.8 - Abnormal levels of other serum enzymes Status: Acute (4) Gallstone pancreatitis: Code(s): K85.10 - Biliary acute pancreatitis without necrosis or infection Status: Acute (5) Choledocholithiasis: Code(s): K80.50 - Calculus of bile duct without cholangitis or cholecystitis without obstruction Status: Acute Plan Admit patient to medical unit under full inpatient status Patient kept NPO except meds patient from ER P.r.n. Zofran ordered for nausea and vomiting P.r.n. morphine ordered for pain control MRCP ordered which showed intrahepatic and extrahepatic biliary duct dilatation and gallbladder distention with gallbladder wall thickening suggesting inflammation Patient evaluated by GI who confirmed gallstones pancreatitis due to stones in the common bile duct and took patient for ERCP ERCP showed dilated common bile duct most likely with the passed stone Surgery evaluated the patient and want patient to undergo interval cholecystectomy during this visit Patient's diet advanced from clear liquid to full liquid to low-fat diet which she is tolerating well Monitor LFTs and lipase levels closely which are slowly down trending LFTs are slowly downtrending [place] [address] on admission to [phone]. Patient NPO except meds since midnight to go to OR Follow-up closely with the GI and surgery for further treatment recommendations DC patient home after cholecystectomy tomorrow if cleared by General surgery ? Patient seen and examined at bedside during my morning rounds ? Collaborated with patient's nurse at the bedside in detail and addressed all concerns ? Labs, electrolytes, radiology, investigations and test results reviewed ? Consult/Nursing/Ancilliary notes on the chart reviewed and appreciated ? Spoke with patient/family at the bedside and answered all the questions that they had Repeat labs in a.m. Electrolyte replacement as per protocol. Patient will be monitored very closely on the floor. Further recommendations as per the hospital course. Subjective Date/time seen: 02/25/23 16:24 Interval history: Patient feeling better today. Going for cholecystectomy today. No major issues Review of Systems Review of Systems: 14 systems were reviewed with pertinent positives and negatives per HPI. Except as documented in the HPI/progress notes, all other systems were reviewed and are negative. All systems reviewed & are unremarkable except as noted in HPI and below Exam Narrative: PHYSICAL EXAMINATION: Vital signs: Please see the chart General physical exam: Patient lying in bed, very pleasant and cooperative with exam, complains of right epigastric pain radiating to the back Head/eyes: Atraumatic, EOMI, PERRLA ENT: Moist mucous membranes, nasal passages clear Neck: Supple, full range of motion, trachea midline CVS: S1 + S2, regular rate and rhythm, no murmurs Respiratory: Bilaterally fair air entry in both lung erickson, mild B/L crackles, symmetric chest expansion, no distress Abdomen: Soft, + mild epigastric tenderness on palpation, bowel sounds +ve, no organomegaly Extremities: No clubbing, no cyanosis, no edema, no calf tenderness Musculoskeletal: Moves all, adequate range of motion, no muscle spasms Skin: Warm, dry, no jaundice, no cyanosis Neurological: Awake, alert, oriented x 3, cranial nerves II-XII intact, no focal neurological deficits Psychiatric: Normal mood, non suicidal Objective Data Vital Signs Vital Signs: Vital Signs - 24 hr 02/24/23 20:00 02/24/23 20:00 02/25/23 00:00 Temperature 36.9 C 36.2 C L Pulse Rate 89 89 Respiratory Rate 18 18 Blood Pressure 102/73 112/90 Pul
[2023-02-26] VITALS: BP 115/68; PULSE 70; RESP 18; TEMP 36.6; O2SAT 95
[2023-02-26] MEDS: ACETAMINOPHEN 325 MG TABLET 650 MG PO (00:02)
[2023-02-26 04:00] VITALS: BP 122/68; PULSE 69; RESP 18; TEMP 36.9; O2SAT 94
[2023-02-26 08:00] VITALS: BP 118/79; PULSE 71; RESP 14; TEMP 36.9; O2SAT 99
--- NOTE | 2023-02-26 10:36 | PM.PNGS ---
Progress Note: A&P Assessment and Plan (1) Cholelithiasis: Code(s): K80.20 - Calculus of gallbladder without cholecystitis without obstruction Status: Acute Assessment and Plan: S/p laparoscopic cholecystectomy and doing well. LFTs and lipase trending down. Advance diet as tolerated to low fat. Okay to discharge her home from a surgical standpoint when medically stable. Follow-up with Dr. Santos in 2 weeks. Low fat diet. (2) Gallstone pancreatitis: Code(s): K85.10 - Biliary acute pancreatitis without necrosis or infection Status: Acute Plan I have discussed the patient's case and plan of care with Dr. Santos. Subjective Subjective Date/Time Seen: 02/26/23 10:36 Post Op day: 1 ( Laparoscopic cholecystectomy) Patient reports: no new complaints, tolerating liquids well, voiding w/o difficulty, flatus, no bowel movement and afebrile Interval history: patient seen this morning and doing well. No acute events overnight. She has some pain in the right upper quadrant that she has been taking Tylenol for. No nausea or vomiting. Tolerating clear liquids and has full liquids for breakfast this morning. Tolerating activity well. LFTs and lipase trending down. Review of Systems Review of Systems: All systems reviewed & are unremarkable except as noted in HPI and below Exam Const: General: comfortable and no acute distress Orientation/consciousness: patient oriented x3 GI: Inspection: non-distended and incision (incisions dry and intact) GI Palp: Yes Soft to palpation, Yes Tenderness to palpation present (GI) (incisional) and No Guarding due to palpation present (GI) Auscultation: normal bowel sounds Extrem: General: no calf tenderness and no edema Psych: Mental Status: mental status grossly normal Insight: Good insight present (Psych) Objective Data Vital Signs Vital Signs: Vital Signs - 24 hr 02/25/23 11:56 02/25/23 13:18 02/25/23 13:30 Temperature 99 F 98.8 F Pulse Rate 78 95 86 Respiratory Rate 16 15 16 Blood Pressure 134/74 134/90 146/75 H Pulse Oximetry 97 100 100 Oxygen Delivery Room Air Simple Face Mask Simple Face Mask Oxygen Flow Rate 6 6 02/25/23 13:45 02/25/23 14:00 02/25/23 14:15 Temperature Pulse Rate 76 71 80 Respiratory Rate 16 14 20 Blood Pressure 136/86 140/86 129/76 Pulse Oximetry 94 97 98 Oxygen Delivery Room Air Room Air Room Air Oxygen Flow Rate 02/25/23 14:28 02/25/23 15:55 02/25/23 20:00 Temperature 97.6 F Pulse Rate 70 104 H 104 H Respiratory Rate 16 17 17 Blood Pressure 141/70 H 114/80 Pulse Oximetry 99 98 98 Oxygen Delivery Room Air Room Air Oxygen Flow Rate 02/25/23 20:00 02/26/23 00:00 02/26/23 04:00 Temperature 98.0 F 97.8 F 98.4 F Pulse Rate 74 70 69 Respiratory Rate 18 18 18 Blood Pressure 117/71 115/68 122/68 Pulse Oximetry 94 95 94 Oxygen Delivery Oxygen Flow Rate 02/26/23 08:00 Temperature 98.4 F Pulse Rate 71 Respiratory Rate 14 Blood Pressure 118/79 Pulse Oximetry 99 Oxygen Delivery Oxygen Flow Rate Intake/Output Intake/Output: Intake & Output 02/23/23 02/24/23 02/25/23 02/26/23 23:59 23:59 23:59 23:59 Intake Total 2696 2770 2290 300 Balance 2696 2770 2290 300 Meds/Results Medications: Active Medications Generic Name Dose Route Start Last Admin Trade Name Freq PRN Reason Stop Dose Admin Acetaminophen 650 mg 02/23/23 10:56 02/26/23 00:02 Acetaminophen 325 Mg Tablet PO 650 mg Q6H PRN Administration Mild Pain (1-3) or Fever Hydrocodone Bitart/Acetaminophen 1 tab 02/26/23 10:34 Hydrocodone/Acetaminophen (*Crx) 5-325 Mg Tablet PO Q4H PRN Pain Rated 4-6 Al Hydrox/Mg Hydrox/Simethicone 30 ml 02/21/23 14:57 Mag Hydrox/Al Hydrox/Simeth 30 Ml Udc PO QID PRN Dyspepsia Ceftriaxone Sodium 1 gm in 50 mls @ 100 mls/hr 02/24/23 12:00 02/25/23 12:51 Rocephin 1 Gm/Ns 50 Ml IVPB Infused Q24H JUAN Infusion Morphine Sulfate
[2023-02-26] MEDS: HYDROcodone/acetaminophen (*CRX) 5-325 MG TABLET 1 TAB PO ×2 (11:09→17:29)
--- NOTE | 2023-02-26 11:42 | WPDANESPN ---
Anes - Prog Note Post-Op Date/Time: 02/26/23 11:42 Cardiovascular status: normal Respiratory status: normal Airway patency: baseline Mental status: baseline Post-Op hydration status: normal Vital Signs: Last Vital Signs Temp 98.4 F 02/26/23 08:00 Pulse 71 02/26/23 08:00 Resp 14 02/26/23 08:00 BP 118/79 02/26/23 08:00 Pulse Ox 99 02/26/23 08:00 O2 Del Method Room Air 02/25/23 20:00 O2 Flow Rate 6 02/25/23 13:30 Pain Score (VAS): 0/10 I/O: Intake & Output 02/25/23 02/26/23 02/26/23 23:59 07:59 15:59 Intake Total 840 300 Balance 840 300 Laboratory Tests 02/25/23 06:04 02/25/23 06:04 Microbiology 02/21/23 03:27 Blood Blood Culture - Final 02/21/23 03:36 Blood Blood Culture - Final Post-procedural complaints: none Patient Feedback: Patient satisfied with anesthetic care.
[2023-02-26 12:00] VITALS: BP 111/62; PULSE 73; RESP 16; TEMP 36.4; O2SAT 98
[2023-02-26 16:00] VITALS: BP 115/63; PULSE 74; RESP 16; TEMP 36.3; O2SAT 99
--- NOTE | 2023-02-26 16:23 | PM.DS ---
DS: Admitting Diagnosis Discharge Date 02/26/2023: Admitting Diagnosis Choledocholithiasis Gallstone pancreatitis Nausea and vomiting DS: Discharge Diagnosis Discharge Diagnosis (1) Cholelithiasis: Code(s): K80.20 - Calculus of gallbladder without cholecystitis without obstruction Status: Acute (2) Gallstone pancreatitis: Code(s): K85.10 - Biliary acute pancreatitis without necrosis or infection Status: Acute (3) Nausea and vomiting in adult: Code(s): R11.2 - Nausea with vomiting, unspecified Status: Acute (4) Epigastric pain: Code(s): R10.13 - Epigastric pain Status: Acute (5) Elevated liver enzymes: Code(s): R74.8 - Abnormal levels of other serum enzymes Status: Acute (6) Pancreatitis: Qualifiers: Acute pancreatitis complication: no infection or necrosis Chronicity: acute Pancreatitis type: biliary Qualified Code(s): K85.10 - Biliary acute pancreatitis without necrosis or infection Code(s): K85.90 - Acute pancreatitis without necrosis or infection, unspecified Status: Acute (7) Choledocholithiasis: Code(s): K80.50 - Calculus of bile duct without cholangitis or cholecystitis without obstruction Status: Acute (8) UTI (urinary tract infection): Code(s): N39.0 - Urinary tract infection, site not specified Status: Acute DS: Summary Hospital Course Reason for hospitalization: Patient came to the ER for evaluation of her epigastric pain getting progressively worse Hospital Course: H&P: HPI History of Present Illness Date/Time: 02/21/23? 13:55 Chief Complaint: Complaining of abdominal pain since the day before yesterday which is getting progressively worse Narrative: She is a very pleasant lady who is complaining of abdominal pain since yesterday, located in the epigastrium radiating to the back underneath both shoulder blades intensity to 4/5 of pain initially associated with nausea and vomiting. It got worse to the point that she describes is at 9/10 and the patient was brought to the ER for evaluation.? Workup [place] [address] and bile duct stone on imaging consistent with gallstone pancreatitis.? Patient received p.r.n. meds for nausea vomiting and pain control and she is admitted for medical management and GI evaluation for workup and possible ERCP. HOSPITAL COURSE ... Date of Admission - 02/25/2023: Plan Admit patient to medical unit under full inpatient status Patient kept NPO except meds patient from ER P.r.n. Zofran ordered for nausea and vomiting P.r.n. morphine ordered for pain control MRCP ordered which showed intrahepatic and extrahepatic biliary duct dilatation and gallbladder distention with gallbladder wall thickening suggesting inflammation Patient evaluated by GI who confirmed gallstones pancreatitis due to stones in the common bile duct and took patient for ERCP on 02/22/2023 ERCP showed dilated common bile duct most likely with the passed stone Surgery evaluated the patient and took pt to OR for laparoscopic cholecystectomy on 02/25/2023 Patient's diet advanced from clear liquid to full liquid to low-fat diet which she is tolerating well Monitor LFTs and lipase levels closely which are slowly down trending LFTs are slowly downtrending [place] [address]487 on admission to [phone]. Follow-up closely with the GI and surgery for further treatment recommendations DC patient home after cholecystectomy tomorrow if cleared by General surgery 02/26/2023: Patient is feeling better today. She was started on clear liquid diet yesterday which she tolerated well. She is advanced to full liquid diet and later to low-fat diet today which she is tolerating well. She is ambulating on the floor. Postop pain is under control on meds. She has no leukocytosis and her liver functions and lipase continue to downtrend. She was diagnosed with group B Streptococcus UTI
== END 2023-02-26 17:50 | disposition home or self-care (01) | DRG 418 ==
LOC: ANHED 02-21 03:18 → ANH3MEDSUR 02-21 04:29
PROVIDERS: Emergency Medicine; Internal Medicine Gastroenterology; Surgery; Admitting Provider Internal Medicine; Emergency Provider Physician Assistant; PCP Family Medicine; Visit Provider Family Medicine
PROC: 0F798ZZ Dilation of Common Bile Duct, Via Natural or Artificial Opening Endoscopic (ICD-10-PCS; CPT 43260; principal; 2023-02-22 09:00)
PROC: 0FT44ZZ Resection of Gallbladder, Percutaneous Endoscopic Approach (ICD-10-PCS; CPT 47562; principal; 2023-02-25 13:30)
DX: K85.10 Biliary acute pancreatitis without necrosis or infection (principal); N39.0 Urinary tract infection, site not specified; K80.50 Calculus of bile duct without cholangitis or cholecystitis without obstruction; B95.1 Streptococcus, group B, as the cause of diseases classified elsewhere; M19.90 Unspecified osteoarthritis, unspecified site
CPT/HCPCS: 36415; 71046; 71275; 74177; 74183; 74329; 76376; 80053; 80074; 81001; 83605; 83690; 83735; 84100; 84484; 85025; 85380; 85610; 85730; 87040; 87077; 87086; 87088; 88304; 93005; 96374; 96375; 96376; 99285; A9270; A9577; C9113; G0378; J0330; J0696; J1100; J1170; J2250; J2270; J2405; J2704; J3010; J7030; J7040; J7120; Q9966; Q9967

== ENCOUNTER 2023-09-02 13:39 | Outpatient (CLI) | payer MEDICARE, BC, SELFPAY ==
--- NOTE | ~2023-09-02 | XR_ITS ---
3 VIEWS LUMBAR SPINE Ordering provider: Gissell Simpson MD History: . no injury , Low back pain with bilateral leg pain for 4 year . Comparison: July 16, 2022 FINDINGS: VERTEBRAL BODIES:Anterolisthesis at the level of L4-L5. No visible fracture or subluxation. Degenera tive changes of the spine. DISK SPACES: Narrowing of the disc L4-L5 and L5-S1. Multilevel facet joint disease. SOFT TISSUES: Normal. IMPRESSION: No acute osseous abnormality lumbar spine. Spondylolisthesis at the level of L4-L5. Degenerative disc disease at the level of L4-L5 and L5-S1. Reviewed, dictated and finalized at location A.
== END 2023-09-02 13:40 ==
PROVIDERS: PCP Neurological Surgery; Visit Provider Neurological Surgery
DX: M79.661 Pain in right lower leg (principal); M79.662 Pain in left lower leg; M51.36 Other intervertebral disc degeneration, lumbar region
CPT/HCPCS: 72110

== ENCOUNTER 2023-11-04 12:41 | Outpatient (CLI) | payer MEDICARE, BC, SELFPAY ==
--- NOTE | ~2023-11-04 | MR_ITS ---
MRI of the lumbar spine Clinical History: Stenosis Technique: Axial T2-weighted images, and sagittal T1-weighted, T2-weighted, and T2 fat-sat images wer e acquired. COMPARISON: 07/23/2022 Findings: No fracture identified. Stable 6 mm anterolisthesis of L4 over L5. No suspicious bone marro w signal abnormality seen. At L1-L2, there is no disc bulge or herniation. There is mild to moderate facet arthropathy. No centr al canal stenosis or neural foraminal narrowing. At L2-L3, there is no disc bulge or herniation. There is mild facet arthropathy. No central canal oneal nosis or neural foraminal narrowing. At L3-L4, there is mild diffuse disc bulge with moderate facet arthropathy. There is mild central can al stenosis. There is mild bilateral neural foraminal narrowing. At L4-L5, there is diffuse disc bulge/uncovering with severe facet arthropathy, which result in sever e spinal canal stenosis/thecal sac compression. There is moderate bilateral neural foraminal narrowin g. At L5-S1, there is mild to moderate degenerative disc narrowing. There is mild disc bulge and moderat e facet arthropathy. There is minimal central canal stenosis. There is minimal bilateral neural ebonie inal narrowing. Paravertebral soft tissues are unremarkable. Impression: Severe degenerative spondylosis at L4-L5, as detailed above, with associated 6 mm anterolisthesis at this level. Additional mild degenerative changes, as above. Reviewed, dictated and finalized at [facility]. Impression: Severe degenerative spondylosis at L4-L5, as detailed above, with associated 6 mm anterolisthesis at this level. Additional mild degenerative changes, as above.
== END 2023-11-04 12:42 | disposition home or self-care (01) ==
LOC: GOSHIMG 12:44
PROVIDERS: PCP Family Medicine; Visit Provider Neurological Surgery
DX: M48.061 Spinal stenosis, lumbar region without neurogenic claudication (principal); M47.896 Other spondylosis, lumbar region
CPT/HCPCS: 72148

== ENCOUNTER 2023-11-11 12:50 | Outpatient (CLI) | payer MEDICARE, BC, SELFPAY ==
--- NOTE | ~2023-11-11 | DEXA_ITS ---
Bone Density Report Name: JULY MCKOY Age: 63 Sex: Female Ethnicity: White Date of : 1960 Indication: postmenopausal; screening for osteoporosis; height loss; Referring Provider: EVELYN LOGAN Study: Bone densitometry was performed. Exam Date: November 11, 2023 Accession number: [id number] Bone Density: Region BMD T-score Z-score Classification AP Spine(L1-L4) 0.934 -1.0 0.7 Normal Femoral Neck (Left) 0.628 -2.0 -0.5 Osteopenia Total Hip (Left) 0.877 -0.5 0.7 Normal Femoral Neck (Right) 0.670 -1.6 -0.1 Osteopenia Total Hip (Right) 0.854 -0.7 0.5 Normal Femoral Neck Mean 0.649 -1.8 -0.3 Osteopenia Total Hip Mean 0.865 -0.6 0.6 Normal World Health Organization criteria for BMD impression classify patients as: Normal (T-score at or above -1.0), Osteopenia (T-score between -1.0 and -2.5), or Osteoporosis (T-score at or below -2.5). 10-year Fracture Risk(1): Major Osteoporotic Fracture 10% Hip Fracture 1.5% Reported Risk Factors: [place] (), Neck BMD=0.628, BMI=24.3 (1) FRAX(R) Version 3.08. Fracture probability calculated for an untreated patient. Fracture probability may be lower if the patient has received treatment. Clinical Information Provided by Patient: Has used the following medications: Vitamin D Patient maximum height was 62 Menopause Age: 48 No regular weight bearing exercise Drinks caffeinated beverages Onset of menses at age 10 Number of children 3 Impression: The patient has low bone mass, based on the Left Femoral Neck T-score. Discussion: BONE DENSITY IS LOW AT ONE OR MORE SKELETAL SITES. This patient's lowest T-score is low at one or more skeletal sites. It meets the World Health Organization's (WHO) criteria for ?low bone mass? (T-score between -1.0 and -2.5). The patient's 10-year risk of fracture as calculated by FRAX is less than the threshold where pharmacological therapy is recommended by the National Osteoporosis Foundation (NOF). However, all treatment decisions require clinical judgment and consideration of individual patient factors, including patient preferences, comorbidities, previous drug use, risk factors not captured in the FRAX model (e.g., frailty, falls, vitamin D deficiency, increased bone turnover, interval significant decline in bone density) and possible under or overestimation of fracture risk by FRAX. The patient should follow a healthful lifestyle (good nutrition with adequate calcium and vitamin D, and appropriate weight-bearing exercise). Follow-Up: Consider repeating this study in 2 to 3 years to reassess this patient's status, or sooner if there is some new clinical indication. Reported by: WOLFGANG on 11/17/2023 11:25:00 AM. Reviewed, dictated and finalized at location A.
== END 2023-11-11 12:51 | disposition home or self-care (01) ==
PROVIDERS: PCP Family Medicine; Visit Provider Neurological Surgery
DX: Z78.0 Asymptomatic menopausal state (principal); M85.89 Other specified disorders of bone density and structure, multiple sites
CPT/HCPCS: 77080

== ENCOUNTER 2024-04-07 10:34 | Outpatient (CLI) | payer MEDICARE, BC, SELFPAY ==
--- NOTE | ~2024-04-07 | XR_ITS ---
Lumbosacral Spine: AP and lateral views Clinical History: Post fusion COMPARISON: 09/02/2023 Findings: Status post interval posterior fusion from L4 through S1, with bilateral rods and transpedi cular screws present. Stable 8 mm anterolisthesis of L4 over L5. Stable mild degenerative spondylosis otherwise.. The sacroiliac joints are normally outlined. Impression: Status post interval posterior fusion from L4 through S1, as above. Stable 8 mm anterolisthesis of L4 over L5. Reviewed, dictated and finalized at location M. CARE PROVIDER Impression: Status post interval posterior fusion from L4 through S1, as above. Stable 8 mm anterolisthesis of L4 over L5.
== END 2024-04-07 10:35 | disposition home or self-care (01) ==
LOC: GOSHIMG 10:35
PROVIDERS: PCP Neurological Surgery; Visit Provider Neurological Surgery
DX: M43.16 Spondylolisthesis, lumbar region (principal); Z98.1 Arthrodesis status
CPT/HCPCS: 72100

== ENCOUNTER 2024-07-13 08:02 | Outpatient (CLI) | payer MEDICARE, BC, SELFPAY ==
--- NOTE | ~2024-07-13 | XR_ITS ---
XR lumbar spine 2-3V 07/13/2024 08:20 Indication: Lumbar stenosis Procedure: 3 views lumbar spine Comparison: 04/07/2024 Findings: Bowel gas pattern nonobstructive. Stable appearance to posterior fusion at L4-S1. Stable 8 mm anterolisthesis at L4-5. Pedicle screws appear intact. Vertebral body heights are maintained. Stab le appearance to clustered stones in the upper pole of the left kidney possibly within a calyceal div erticulum. No acute abnormality of the lumbar spine. There is disc narrowing at all lumbar levels. Impression: 1: Stable appearance to fusion hardware involving posterior fusion at L4-S1. Stable 8 mm spondylolist hesis at L4-5. Reviewed, dictated and finalized at location A. Impression: 1: Stable appearance to fusion hardware involving posterior fusion at L4-S1. St able 8 mm spondylolisthesis at L4-5.
== END 2024-07-13 08:03 | disposition home or self-care (01) ==
PROVIDERS: PCP Neurological Surgery; Visit Provider Neurological Surgery
DX: M48.061 Spinal stenosis, lumbar region without neurogenic claudication (principal); Z98.1 Arthrodesis status
CPT/HCPCS: 72100

== ENCOUNTER 2024-07-28 13:55 | Outpatient (CLI) | payer MEDICARE, BC, SELFPAY ==
--- NOTE | ~2024-07-28 | MM_ITS ---
EXAMINATION: MM screening kailey BI w pepe HISTORY: Screening TECHNIQUE: Craniocaudal and mediolateral oblique 3-D tomosynthesis images were obtained and synthetic 2-D images were generated. CAD analysis was submitted and interpreted. COMPARISON: Comparison to multiple prior studies sequentially, with oldest reviewed study dated 07/20. BREAST PARENCHYMAL COMPOSITION: Not dense: There are scattered areas of fibroglandular density. FINDINGS: There is no evidence of suspicious mass, calcification, or architectural distortion to sugg est malignancy in either breast. There has been no suspicious interval change. IMPRESSION: 1. No mammographic evidence of malignancy. 2. Recommend routine screening mammography in one year. BI-RADS Category 1: Negative Reviewed, dictated and finalized at location A.
== END 2024-07-28 13:56 | disposition home or self-care (01) ==
LOC: MICIMG 14:02
PROVIDERS: PCP Nurse Practitioner; Visit Provider Nurse Practitioner
DX: Z12.31 Encounter for screening mammogram for malignant neoplasm of breast (principal)
CPT/HCPCS: 77063; 77067

== ENCOUNTER 2024-10-19 12:25 | Outpatient (CLI) | payer MEDICARE, BC, SELFPAY ==
--- NOTE | ~2024-10-19 | XR_ITS ---
EXAM/ PROCEDURE: XR foot RT min 3V, XR foot LT min 3V, XR knee RT 3V, XR chest 2V - 10/19/2024 13:15 CDT HISTORY: 64 years old Female with PAIN IN UNSPECIFIED FOOT COMPARISON: None available TECHNIQUE: Three view(s) FINDINGS/ IMPRESSION: Right foot: There are no fractures or dislocations.Joint space narrowing, subchondral sclerosis, subchondral cyst formation and osteophyte formation, compatible with moderate osteoarthritis. Calcaneal enthesopathy. Left foot: There are no fractures or dislocations.Joint space narrowing, subchondral sclerosis, subchondral cyst formation and osteophyte formation, compatible with moderate osteoarthritis. Calcaneal enthesopathy. Right knee: There are no fractures or dislocations.Joint space narrowing, subchondral sclerosis, subchondral cyst formation and osteophyte formation, compatible with mild osteoarthritis. Chest: The lungs are clear. No large pleural effusion or pneumothorax. Cardiomediastinal silhouette is unremarkable. Mild degenerative changes. Partially visualized posterior spinal fusion hardware. Cholecystectomy clips are seen. Reviewed, dictated and finalized at location A.
--- OUTSIDE RECORDS SUMMARY | 2024-10-19 12:31 | XMS_ITS | Clinical Summary ---
Author Organization [facility] Address [address] [place] [address] Care Team Providers Care Junior Graphic Designer Name Role Phone Jose Walker MD Primary Care Provider [phone] Allergies Active Allergy Reactions Criticality Noted Date Comments Tetanus Toxoids Rash Low 12/07/2023 Medications vitamin D3, cholecalciferol , 125 mcg capsule Take 1 capsule (125 mcg total) by mouth daily. Active Active Problems Problem Noted Date Diagnosed Date S/P lumbar spinal fusion 12/16/2023 Spondylolisthesis 12/15/2023 Social History Tobacco Use Types Packs/Day Years Used Date Smoking Tobacco: Never Smokeless Tobacco: Never Tobacco Cessation:Counseling Given: Not Answered Alcohol Use Standard Drinks/Week Comments Not Currently 0 (1 standard drink = 0.6 oz pur e alcohol) Comments No Sex and Gender Information Value Date Recorded Sex Assigned at Not on file Legal Sex Female 9:24 AM CDT Gender Identity Not on file Sexual Orientation Not on file Last Filed Vital Signs Vital Sign Reading Time Taken Comments Blood Pressure 119/76 12/17/2023 8:32 AM CDT Pulse 102 12/17/2023 8:32 AM CDT Temperature 36.5 C (97.7 F) 12/17/2023 8:32 AM CDT Respiratory Rate 18 12/17/2023 8:32 AM CDT Oxygen Saturation 97% 12/17/2023 8:32 AM CDT Inhaled Oxygen Concentration - - Weight 64 kg (141 lb 1.5 oz) 12/17/2023 4:14 AM CDT Height 152.4 cm (5') 12/15/2023 9:40 AM CDT Body Mass Index 27.56 12/15/2023 9:40 AM CDT Plan of Treatment Health Maintenance Due Date Last Done Comments Colorectal Cancer Screening Colonoscopy (10 Years) 1958 Hepatitis C 1976 DTaP, Tdap and Td Vaccines ( 1 - Tdap) 1977 Mammogram Screening 1998 Pneumococcal Vaccine: 50+ Years (1 of 1 - PCV) 2008 Zoster Vaccines (1 of 2) 2008 Annual Medicare Wellness Visit 08/06/2023 Dexa Scan (General) 08/06/2023 COVID-19 Vaccine (3 - 2023-2 5 season) 2023 12/19/2020, 11/28/2020 RSV Immunization or 60+ Years (1 - 1-dose 75+ series) 2033 Meningococcal B Vaccine Aged Out No l onger eligible based on patient's age to complete this topic Meningococcal Vaccine Aged Out No malou benedict eligible based on patient's age to complete this topic RSV Immunizations Under 20 Months Aged Out No longer eligible b ased on patient's age to complete this topic Goals Goal Patient Goal Type Associated Problems Recent Progress Patient-Stated? Author Family - family caregiver with be involved in care transitions and discharge planning Lifestyle No Alfredo Walter, RN Medical Devices Implanted Type Area Pediatric Pathologist Device Identifier Shelf Expiration Date Model / Serial / Lot Orthofix 70 Mm Rods Implanted:Qty: 2 on 12/15/2023 by Gissell Simpson MD at [facility] [place] N/A: Spine Lumbar ORTHOFIX . [id number] / / . Orthofix 6.5 X 45 Mm Screw Implanted:Qty: 4 on 12/15/2023 by Gissell Simpson MD at [facility] Screw N/A: Spine Lumbar ORTHOFIX . [id number] / / . Orthofix 6.5 X 40 Mm Screw Implanted:Qty: 2 on 12/15/2023 by Gissell Simpson MD at [facility] Screw N/A: Spine Lumbar ORTHOFIX . [id number] / / . Orthofix Nxg Head Implanted:Qty: 6 on 12/15/2023 by Gissell Simpson MD at [facility] N/A: Spine Lumbar ORTHOFIX . / / . Orthofix Set Screw Implanted:Qty: 6 on 12/15/2023 by Gissell Simpson MD at [facility] N/A: Spine Lumbar ORTHOFIX . . Insurance MEDICARE [facility] Advance Directives * Full Code (Latest Code Status on File) Date Activated Date Inactivated Comments 12/15/2023 7:33 PM 12/17/2023 12:43 PM Care Teams Junior Graphic Designer Relationship Specialty Start Date End Date Jose Walker MD [address] [place] [address] PCP - General FAMILY PRACTICE 12/07/23
--- OUTSIDE RECORDS SUMMARY | 2024-10-19 12:31 | XMS_ITS | Encounter Summary ---
Author Organization [facility] Address [facility] [place] [address] Care Team Providers Care Cognos Administrator Name Role Phone Jose Walker MD Primary Care Provider [phone] Encounter Details Date Type Department Care Team (Late st Contact Info) Description 12/15/2023 Prep for Procedure [facility] Pre-Admission Testing [facility] [address] [place], [place] [id number] Gissell Simpson MD [address] [facility] [address] [place], [place] [id number] Social History Tobacco Use Types Packs/Day Years Used Date Smoking Tobacco: Never Smokeless Tobacco: Never Alcohol Use Standard Drinks/Week Comments Not Currently 0 (1 standard drink = 0.6 oz pur e alcohol) Comments No Sex and Gender Information Value Date Recorded Sex Assigned at Not on file Legal Sex Female 9:24 AM CDT Gender Identity Not on file Sexual Orientation Not on file documented as of this encounter Functional Status * Question Answer Date of Assessment Author Status Do you have serious difficulty walking or climbing stairs? No 12/15/2023 4:46 PM ALICIAT Tammy Fernandez RN Activ e * Question Answer Date of Assessment Author Status Do you have difficulty dressing or bathing? No 12/15/2023 4:46 PM ALICIAT Tammy Fernandez RN A ctive Because of a physical, mental, or emotional condition, do you have difficulty doing errands alone such as visiting a doctor's office or shopping? No 12/15/2023 4:46 PM Tammy Melchor RN Active * Are you deaf or do you have serious difficulty hearing Answer Date of Assessment Author Status No 12/15/2023 4:46 PM Tammy Melchor RN Active * Are you blind or do you have serious difficulty seeing, even when wearing glasses? Answer Date of Assessment Author Status No 12/15/2023 4:46 PM Tammy Melchor RN Active * Do you have serious difficulty walking or climbing stairs? Answer Date of Assessment Author Status No 12/15/2023 4:46 PM Tammy Melchor RN Active * Do you have difficulty dressing or bathing? Answer Date of Assessment Author Status No 12/15/2023 4:46 PM Tammy Melchor RN Active * Because of a physical, mental, or emotional condition, do you have difficulty doing errands alone such as visiting a doctor's office or shopping? Answer Date of Assessment Author Status No 12/15/2023 4:46 PM Tammy Melchor RN Active * Question Answer Date of Assessment Author Status Are you deaf or do you have serious difficulty hearing No 12/15/2023 4:46 PM Tammy Melchor RN Active Are you blind or do you have serious difficulty seeing, even when wearing glasses? No 12/15/2023 4:46 PM Tammy Melchor RN Active * Calculated C-SSRS Risk Score (Lifetime/Recent) Answer Date of Assessment Author Status No Risk Indicated 12/15/2023 9:40 AM Haven Baeza RN Active * [place] Suicide Severity Rating Scale (Screener/Recent Self-Report) Question Answer Date of Assessment Author Status 1. Wish to be (Past 1 Month) No 12/15/2023 9:40 AM Haven Baeza RN Active 2. Non-Specific Active Suicidal Thoughts (Past 1 Month) No 12/15/2023 9:40 AM Haven Baeza RN Active 6. Suicidal Behavior (Lifetime) No 12/15/2023 9:40 AM Haven Baeza RN Active documented as of this encounter Mental Status * Question Answer Entry Date Author Status Because of a physical, mental, or emotional condition, do you have serious difficulty concentrating, remembering, or making decisions? No 12/15/2023 4:46 PM CDT Tammy Fernandez RN A ctive * Because of a physical, mental, or emotional condition, do you have serious difficulty concentrating, remembering, or making decisions? Answer Entry Date Author Status No 12/15/2023 4:46 PM CDT Tammy Fernandez RN Active documented in this encounter Plan of Treatment Not on file documented as of this encounter Goals Goal Patient Goal Type Associated Problems Recent Progress Patient-Stated? Author Family - family caregiver with be involved in care transitions and discharge planning Lifestyle No Alfredo Walter RN documented as of this encounter Results * PROTIME/INR, VENOUS (12/15/2023 9:09 AM CDT) PROTIME 10.7 10.2 - 12.9 SEC 12/15/2023 9:34 AM CDT [facility] INR 0.9 12/15/2023 9:34 AM CDT [facility] Comment: Recommended INR Therapeutic Goals: 2.0-3.0 Routine Therapy 2.5-3.5 Mechanical Prosthetic Valves (High Risk) 12/15/2023 9:09 AM CDT us Gissell Simpson MD LABORATORY Final Result [facility] [address] [place] [address], * URINE BACTERIA CULTURE (12/07/2023 9:56 AM CDT) SPEC DESCRIPTION URINE CLEAN CATCH 12/07/2023 12:07 PM CDT [facility] SPECIAL REQUESTS NO SPECIAL REQUEST 12/07/2023 12:07 PM CDT [facility] CULTURE RESULT NO GROWTH 2 DAYS 12/09/2023 7:29 AM CDT [facility] URINE SPECIMEN OBTAINED BY CLEAN CATCH PROCEDURE / Unknown 12/07/2023 9:56 AM CDT 12/07/2023 12:29 PM CDT us Gissell Simpson MD MICROBIOLOGY - GENERAL ORDER TONY Final Result [facility] [address] [place] [address], documented in this encounter Visit Diagnoses Diagnosis Urine WBC increased- Primary Other nonspecific finding on examination of urine Lumbar stenosis Spinal stenosis, lumbar region, without neurogenic claudication documented in this encounter Care Teams Cognos Administrator Relationship Specialty Start Date End Date Jose Walker MD [address] [place] [address] PCP - General FAMILY PRACTICE 12/07/23 documented as of this encounter
--- OUTSIDE RECORDS SUMMARY | 2024-10-19 12:31 | XMS_ITS | Clinical Summary ---
Author Organization [facility] Address [address] [facility] [place] [address] Care Team Providers Care Strapper Operator Name Role Phone Jose Walker MD Primary Care Provider [phone] Source Comments [facility],non-owned Affiliates and Associated Physician Practices is amultiple site organization consisting of ambulatory clinics and hospital sitesin [place], [place], [place] and [place]. This disclosure is being madepursuant to the Care Everywhere program and may not contain all information available regarding this patient. Last updated 17.[facility] Allergies No known active allergies Medications * Be aware that medications may not be up to date on this document. Alwaysverify current medications with the patient. No known medications Social History Tobacco Use Types Packs/Day Years Used Date Smoking Tobacco: Never Smokeless Tobacco: Never Comments No Sex and Gender Information Value Date Recorded Sex Assigned at Not on file Legal Sex Female 6:09 AM MOBILITY SPECIALIST Gender Identity Not on file Sexual Orientation Not on file Last Filed Vital Signs Vital Sign Reading Time Taken Comments Blood Pressure 124/86 02/10/2017 9:49 AM MOBILITY SPECIALIST Pulse 87 02/10/2017 9:49 AM MOBILITY SPECIALIST Temperature 36.7 C (98.1 F) 02/10/2017 9:49 AM MOBILITY SPECIALIST Respiratory Rate 16 02/10/2017 9:49 AM MOBILITY SPECIALIST Oxygen Saturation 98% 02/10/2017 9:49 AM MOBILITY SPECIALIST Inhaled Oxygen Concentration - - Weight 61.2 kg (135 lb) 02/10/2017 9:49 AM MOBILITY SPECIALIST Height 154.9 cm (5' 1) 02/10/2017 9:49 AM MOBILITY SPECIALIST Body Mass Index 25.51 02/10/2017 9:49 AM MOBILITY SPECIALIST Plan of Treatment Health Maintenance Due Date Last Done Comments BONE DENSITY TESTING 1960 COLOGUARD (AGES 45-75) - COL ON CA SCREENING 1958 COLON MONITORING 1958 COLONOSCOPY - COLON CA SCREENING 1958 CT COLONOGRAPHY - COLON CA SCREENING 1958 Colorectal Cancer Screening 1958 FIT - COLON CA SCREENING 1958 FLEX SIG - COLON CA SCREENING 1958 LIPID TESTING 1958 MAMMOGRAM 1958 HEPATITIS C SCREENING 07/31/1976 DTAP/TDAP/TD VACCINES (1 - Tdap) 1977 PNEUMOCOCCAL VACCINE 50+ (1 of 1 - PCV) 2008 ZOSTER VACCINE (1 of 2) 2008 SCREENING FOR DIABETES 02/10/2017 COVID-19 VACCINE (1 - 2023-2 5 season) 2023 DEPRESSION SCREENING 03/02/2024 INFLUENZA VACCINE (#1) 2024 Respiratory Syncytial Virus (RSV) Vaccine Pt: or over 60 yrs (1 - 1-dose 75+ series) 2033 HEPATITIS B VACCINE Aged Out No longe r eligible based on patient's age to complete this topic HIB VACCINE Aged Out No longer eligi ble based on patient's age to complete this topic HPV VACCINE Aged Out No longer eligi ble based on patient's age to complete this topic MENINGOCOCCAL (Group B) VACC INE SHARED DECISION-MAKING Aged Out No longer eligibl e based on patient's age to complete this topic MENINGOCOCCAL GROUPS A/C/Y/W VACCINE Aged Out No longer eligible b ased on patient's age to complete this topic Insurance [facility] S[employer] PAY NO INSURANCE Member Subscriber Plan / Payer (Ef fective for All Dates) Name:Eleanor Muller Member ID:Not on file Relation to Subscriber:Not on file Name:ELEANOR MULLER Subscriber ID:Not on file Address: [address] [place] [address] Payer ID:Not on file Group ID:Not on file Type:Self Pay Address: [place], [place] [facility] [employer] PAY NO INSURANCE Member Subscriber Plan / Payer (Ef fective for All Dates) Name:Eleanor Muller Member ID:Not on file Relation to Subscriber:Not on file Name:LEORASONAMELEANOR Baca Subscriber ID:Not on file Address: [address] [place] [address] Payer ID:Not on file Group ID:Not on file Type:Self Pay Address: [place], [place] Care Teams Strapper Operator Relationship Specialty Start Date End Date Jose Walker MD [address] [place] [id number] PCP - General Family Medicine 02/10/17
[2024-10-19 13:00] LABS: Hematocrit 42.9 % (35.0-42.0); Hemoglobin 13.8 g/dL (11.7-13.8); Mean Corpuscular HGB Conc 32.2 g/dL (32-36); Mean Corpuscular Hemoglobin 27.8 pg (27.0-31.0); Mean Corpuscular Volume 86.5 fL (78.0-102.0); Platelet Count Result 299 K/mm3 (150-420); Red Blood Count 4.96 M/mm3 (4.20-5.40); White Blood Count 7.9 K/mm3 (4.8-10.8)
[2024-10-19 14:27] LABS: Alanine Aminotransferase 17 U/L (6-35); Albumin Level 4.3 g/dL (3.5-5.1); Alkaline Phosphatase 57 U/L (38-126); Anion Gap 5 mmol/L (4-12); Aspartate Amino Transferase 26 U/L (14-36); Bilirubin,Total 0.7 mg/dL (0.2-1.3); Blood Urea Nitrogen 13 mg/dL (7-17); Calcium 10.2 mg/dL (8.4-10.2); Carbon Dioxide 30 mmol/L (22-30); Chloride 104 mmol/L (98-107); Estimated Glomerular Filt Rate > 60; Glucose 100 mg/dL (65-110); Osmolality Calculated 288 mOsm/kg (285-295); Potassium 4.9 mmol/L (3.4-5.0); Sodium 139 mmol/L (137-145); Total Protein 6.7 g/dL (6.3-8.2)
[2024-10-19 14:57] LABS: Thyroid Stimulating Hormone 0.608 uIU/mL (0.465-4.680)
--- NOTE | 2024-10-21 15:28 | WPDHOLTEREM ---
Holter/Event Monitor Holter/Event Monitor Date of procedure: 10/19/24 Holter/Event Procedure: 24 Hr Holter Monitor Indications: Palpitations Conclusion: 1. 24 hour holter monitor on 10/19/24. 2. Underlying rhythm is sinus rhythm. HR range 51-128 bpm; average HR 81 bpm. 3. There are 4,502 premature supraventricular complexes, 1 supraventricular couplet, 3 supraventricular bigeminy, and 190 supraventricular trigeminy. No supraventricular tachycardia. 4. There are 784 premature ventricular complexes, 2 ventricular couplets, 3 ventricular bigeminy, and 9 ventricular trigeminy. No ventricular tachycardia. 5. No significant pauses greater than 2 seconds. 6. Patient reports 2 episodes of symptoms feeling heart is fast and slow which demonstrate sinus rhythm, HR at 80 and 83 bpm, respectively.
== END 2024-10-19 12:26 | disposition home or self-care (01) ==
PROVIDERS: PCP Family Medicine; Visit Provider Family Medicine
DX: R00.2 Palpitations (principal); M79.673 Pain in unspecified foot; M25.561 Pain in right knee
CPT/HCPCS: 36415; 71046; 73562; 73630; 80053; 84443; 85027; 93225; 93226

== ENCOUNTER 2024-12-26 09:01 | Outpatient (CLI) | payer MEDICARE, BC, SELFPAY ==
--- NOTE | ~2024-12-26 | XR_ITS ---
XR lumbar spine 2-3V Indication: lumbar stenosis, check up from back surgery last year Comparison: None Findings: Posterior fixation of S1, L5 and L4 with grade 1 anterolisthesis of L4 on L5, no acute fracture. Moderate loss of disc height throughout. Soft tissues unremarkable Impression: No acute abnormality. Reviewed, dictated and finalized at location P. Impression: No acute abnormality.
== END 2024-12-26 09:02 | disposition home or self-care (01) ==
LOC: GOSHIMG 09:02
PROVIDERS: PCP Family Medicine; Visit Provider Neurological Surgery
DX: M48.061 Spinal stenosis, lumbar region without neurogenic claudication (principal)
CPT/HCPCS: 72100